=== PATIENT | female | born 1985 | race African-American/Black ===

== ENCOUNTER 2020-12-18 10:52 | Emergency (ER) | payer BC, MEDICAID, SELFPAY ==
[2020-12-18 11:11] VITALS: BP 135/88; PULSE 93; RESP 20; TEMP 36.3; O2SAT 97
--- NOTE | 2020-12-18 12:08 | ED.GENADULT ---
HPI - General Adult General Chief complaint: Skin/Abscess/Foreign Body Stated complaint: Rash on Arm Time Seen by Provider: 12/18/20 12:08 Source: patient and RN notes reviewed Mode of arrival: ambulatory Limitations: no limitations History of Present Illness HPI narrative: 35-year-old -Central African female presents with complaints of raised, itching, generalized rash to upper arms for the past 1 to 2 weeks. Oral reports increasing symptoms over the past 24 hours with itching. Benadryl 25mg and Hydrocortisone cream without relief. History of Asthma. Denies new changes in personal hygiene products or laundry detergent. No new foods or medications. No swelling, burning, bleeding, or drainage. Denies fever, chills, facial swelling, or tongue swelling. Denies chest pain or dyspnea. Tolerating po intake well. LMP 12/13/2020. Remains active. The patient reports she have not been diagnosed with COVID-19. The patient reports she is not waiting for the results of a COVID-19 lab test. The patient reports she do not have weakness or fatigue. The patient reports she do not have a new or worsening cough. The patient reports she do not have any rhinorrhea, congestion, sore throat, loss of taste or smell, nausea, vomiting, abdominal pain, and diarrhea. Denies recent traveling. Denies concerns for COVID-19 or exposures. At this time, patient is not suspected of having COVID-19. Some parts of this dictation were generated by voice recognition software and may contain typographical and/or grammatical inaccuracies. Related Data Home Medications Medication Instructions Recorded Confirmed betamethasone valerate 0.1 applic TOPICAL DIRECTED 12/18/20 12/18/20 hydrochlorothiazide 25 mg PO DAILY 12/18/20 12/18/20 hydrocortisone 1 applic TOPICAL DIRECTED 12/18/20 12/18/20 losartan 100 mg PO DAILY 12/18/20 12/18/20 Allergies Allergy/AdvReac Type Severity Reaction Status Date / Time No Known Allergies Allergy Verified 12/18/20 11:16 Review of Systems Review of Systems: Narrative: CONSTITUTIONAL: Denies fever, chills, sweats. EYES: Denies visual changes, redness, discharge. ENT: Denies rhinorrhea, congestion, sore throat, otalgia. CARDIOVASCULAR: Denies chest pain, palpitations, edema. RESPIRATORY: Denies dyspnea, wheezing, cough. GASTROINTESTINAL: Denies abdominal pain, nausea, vomiting, diarrhea. GENITOURINARY: Denies dysuria, hematuria, abnormal discharge SKIN: Complains of raised, itching, generalized rash to upper arms. Denies drainage. MUSCULOSKELETAL: Denies acute back pain, joint pain, or myalgia. NEUROLOGIC: Denies numbness or focal weakness. PSYCHIATRIC: Denies anxiety or depression. All other systems reviewed & are unremarkable except as noted in HPI and below. [facility] Past Medical History Medical History (Updated 12/19/20 @ 00:01 by Marni Trotter) Asthma Hypertension Obese Ovarian cyst Right Surgical History Surgical History (Updated 12/18/20 @ 12:20 by SUHAS Bishop) History of cholecystectomy History of dilation and curettage History of oophorectomy, unilateral Right Family History Family History (Updated 12/18/20 @ 12:21 by SUHAS Bishop) Father Unknown family medical history Mother Alive and well Social History Social History (Updated 12/18/20 @ 12:21 by SUHAS Bishop) Smoking status: Never smoker Tobacco type: cigarettes Second hand tobacco smoke exposure: No Alcohol intake: current Substance use: never Substance use type: does not use Living arrangements: with family Occupation/Education: occupation Gender identity (if verbalized by the patient): Female Comments At time of signature, agree with nurse past medical, surgical, social, and family history. There is relevant patient's history pertinent to the presenting complaint, no relevant family history pertinent to the presenting complaint. Exam Narrative: Exam Narrative: GENER
== END 2020-12-18 12:27 | disposition home or self-care (01) ==
PROVIDERS: Emergency Provider Nurse Practitioner Family
DX: L30.9 Dermatitis, unspecified (principal); J45.909 Unspecified asthma, uncomplicated; I10 Essential (primary) hypertension
CPT/HCPCS: 99203; G0463

== ENCOUNTER 2024-07-09 11:53 | Outpatient (CLI) | payer BC, SELFPAY ==
[2024-07-09 12:08] LABS: Basophils Percent Auto 0.2 % (0.2-1.2); Eosinophils Absolute Auto 0.1 K/mm3 (0-0.3); Eosinophils Percent Auto 1.5 % (0-4.4); Hematocrit 36.9 % (37.0-47.0); Hemoglobin 12.1 g/dL (12.0-15.0); Immature Granulocyte Absolute 0.03 K/mm3 (0.00-0.031); Immature Granulocyte Percent A 0.4 % (0-0.5); Lymphocytes Percent Auto 20.8 % (18.3-44.2); Mean Corpuscular HGB Conc 32.8 g/dl (32-36); Mean Corpuscular Hemoglobin 27.6 pg (26-34); Mean Corpuscular Volume 84.1 fl (80-100); Mean Platelet Volume 8.8 fl (7.4-10.4); Monocytes Absolute Auto 0.4 K/mm3 (0.1-0.6); Monocytes Percent Auto 4.5 % (2.6-8.5); Neutrophils Absolute Auto 5.9 K/mm3 (1.3-6.7); Neutrophils Percent Auto 72.6 % (45.5-73.1); Platelet Count Result 339 k/mm3 (150-375); Red Blood Count 4.39 M/mm3 (4.2-5.4); Red Cell Distribution Width 11.9 % (11.5-14.5); White Blood Count 8.2 K/mm3 (4.5-10.0)
[2024-07-09 12:18] LABS: Alanine Aminotransferase 23 U/L (6-35); Alkaline Phosphatase 87 U/L (38-126); Anion Gap 4 mmol/L (4-12); Aspartate Amino Transferase 23 U/L (14-36); Bilirubin,Total 0.5 mg/dL (0.2-1.3); Blood Urea Nitrogen 13 mg/dL (7-17); Calcium 9.4 mg/dL (8.4-10.2); Carbon Dioxide 29 mmol/L (22-30); Chloride 104 mmol/L (98-107); Cholesterol 241 mg/dL (0-200); Estimated Glomerular Filt Rate > 60; Glucose 90 mg/dL (65-110); HDL Direct 42 mg/dL; Potassium 4.3 mmol/L (3.4-5.0); Sodium 137 mmol/L (137-145); Triglycerides 113 mg/dL (<150)
[2024-07-09 12:21] LABS: Alanine Aminotransferase 23 U/L (6-35); Alkaline Phosphatase 88 U/L (38-126); Aspartate Amino Transferase 23 U/L (14-36); Bilirubin,Total 0.6 mg/dL (0.2-1.3); Lipase 26 U/L (23-300)
[2024-07-09 12:29] LABS: LDL Cholesterol Direct 130 mg/dL
[2024-07-09 13:05] LABS: Vitamin D 25 Hydroxy 25.7 ng/mL
== END 2024-07-09 11:54 | disposition home or self-care (01) ==
PROVIDERS: PCP Emergency Medicine; Referring Provider Emergency Medicine; Visit Provider Nurse Practitioner Family
DX: R79.89 Other specified abnormal findings of blood chemistry (principal); E78.5 Hyperlipidemia, unspecified; E03.9 Hypothyroidism, unspecified; E55.9 Vitamin D deficiency, unspecified
CPT/HCPCS: 36415; 80053; 80061; 80076; 82306; 83690; 84443; 85025

== ENCOUNTER 2024-09-20 10:23 | Outpatient (CLI) | payer BC, SELFPAY ==
--- NOTE | ~2024-09-20 | XR_ITS ---
EXAMINATION: XR wrist LT 2V DATE: 09/20/2024 10:42 INDICATION: Left wrist pain. TECHNIQUE: 2 views of left wrist were obtained. COMPARISON: None. FINDINGS: Alignment is normal. No fracture. Joint spaces are normal. IMPRESSION: 1. Normal left wrist. Reviewed, dictated and finalized at location A. ICAL TRIALS DATA COORDINATOR IMPRESSION: 1. Normal left wrist.
--- OUTSIDE RECORDS SUMMARY | 2024-09-20 10:27 | XMS_ITS | Clinical Summary ---
Author Organization [facility] Address [address] [place] [address] Care Team Providers Care Strategic Planning Manager Name Role Phone Joanna Yang MD Primary Care Provider [phone] Source Comments [facility],non-owned Affiliates and Associated Physician Practices is amultiple site organization consisting of ambulatory clinics and hospital sitesin [place], [place], [place] and [place]. This disclosure is being madepursuant to the Care Everywhere program and may not contain all information available regarding this patient. Last updated 18.[facility] Allergies Active Allergy Reactions Criticality Noted Date Comments Losartan Itching Medium 12/07/2020 Medications * Be aware that medications may not be up to date on this document. Alwaysverify current medications with the patient. Medication Sig Dispensed Refills Start Date End Date Status hydroCHLOROthiazide (HYDRODIURIL) 25 MG tablet Take 25 mg by mouth once daily 11/25/2020 Active desoximetasone (TOPICORT) 0.25 % ointment Apply to rash up to twice daily. 30 days supply. 60 g 1 12/14/2020 Active betamethasone dipropionate (DIPROSONE) 0.05 % ointment Apply to rash up to twice daily. 30 days supply. 50 g 1 12/27/2020 Active loratadine (CLARITIN) 10 MG tablet TAKE 1 TABLET BY MOUTH ONCE DAILY FOR 60 DAYS FOR RHINOSINUSITIS 12/18/2020 Active predniSONE (DELTASONE) 20 MG tablet 12/18/2020 Active Active Problems Problem Noted Date Diagnosed Date Rash and nonspecific skin eruption 12/14/2020 Assessment & Plan (12/28/2020 11:02 PM CDT): - Stable - Monomorphic hyperpigmented flat topped papules coalescing into pebbled, flat topped plaques on forehead, V of chest, dorsal forearms with biopsy showing scattered intraepidermal apoptotic keratinocytes w/ superficial to mid PV lymphocytic infiltrate - Based on bx findings most favor a phototoxic dermatitis vs. other drug eruption vs. less likely connective tissue disease - Finish out prednisone course prescribed by outside provider - Start betamethasone dip oint BID AA 2 weeks, then decrease to EOD application - Strict SPF 50+, broad spectrum, containing Zn oxide vs. titanium dioxide; sun avoidance - F/u 8 wks to evaluate for resolution Assessment & Plan (12/14/2020 9:41 AM CDT): - Numerous monomorphic flat topped hyperpigmented papules in somewhat of a photo distribution on face, chest, forearms - PMLE vs photoallergic reaction less likely lichenoid drug - Start desoximetasone ointment on flaring areas on body up to BID for up to 2 weeks, taper with improvement - Punch Biopsy (see procedure note) - Post-biopsy handout given - Wound care instructions reviewed - RTC in 10-14 days for suture removal and to review results - Will call patient with biopsy results. If intervention is indicated, will make arrangements at that time Family History Medical History Relation Name Comments None Known Brother None Known Father None Known Maternal Aunt None Known Maternal Grandfather None Known Maternal Grandmother None Known Maternal Uncle None Known Mother None Known Other None Known Paternal Aunt None Known Paternal Grandfather None Known Paternal Grandmother None Known Paternal Uncle None Known Sister Asthma Neg Hx CVA Neg Hx Cancer - Breast Neg Hx Cancer - Other Neg Hx Cancer - Skin, Melanoma Neg Hx Cancer - Skin, Non Melanoma Neg Hx Eczema Neg Hx Hemophilia Neg Hx Psoriasis Neg Hx Relation Name Status Comments Brother Father Maternal Aunt Maternal Grandfather Maternal Grandmother Maternal Uncle Mother Other Paternal Aunt Paternal Grandfather Paternal Grandmother Paternal Uncle Sister Social History Tobacco Use Types Packs/Day Years Used Date Smoking Tobacco: Never Smokeless Tobacco: Never Sex and Gender Information Value Date Recorded Sex Assigned at Not on file Gender Identity Not on file Sexual Orientation Not on file Plan of Treatment Health Maintenance Due Date Last Done Comments LIPID TESTING 1983 MAMMOGRAM 1983 PAP SMEAR 1983 HIV SCREENING 1998 HEPATITIS C SCREENING 01/06/2001 DTAP/TDAP/TD VACCINES (1 - Tdap) 2002 HEPATITIS B VACCINE (1 of 3 - 19+ 3-dose series) 2002 COVID-19 VACCINE (1 - 2023-2 5 season) 2024 INFLUENZA VACCINE (#1) 2024 DEPRESSION SCREENING 07/29/2024 ZOSTER VACCINE (1 of 2) 2033 HIB VACCINE Aged Out No longer eligi ble based on patient's age to complete this topic HPV VACCINE Aged Out No longer eligi ble based on patient's age to complete this topic MENINGOCOCCAL (Group B) VACCINE Aged Out No longer eligible based on patient's age to complete this topic MENINGOCOCCAL VACCINE Aged Out No sudeep shena eligible based on patient's age to complete this topic PNEUMOCOCCAL VACCINE Aged Out No long er eligible based on patient's age to complete this topic Care Teams Strategic Planning Manager Relationship Specialty Start Date End Date Joanna Yang MD [address] [place] [address] PCP - General 05/08/18
--- OUTSIDE RECORDS SUMMARY | 2024-09-20 10:27 | XMS_ITS | Referral Summary ---
Author Organization [facility] Address [address] [place] [address] Care Team Providers Care Color Grinder Name Role Phone Joanna Yang MD Primary Care Provider [phone] [facility],non-owned Affiliates and Associated Physician Practices is amultiple site organization consisting of ambulatory clinics and hospital sitesin [place], [place], [place] and [place]. This disclosure is being madepursuant to the Care Everywhere program and may not contain all information available regarding this patient. Last updated 18.[facility] Allergies Active Allergy Reactions Criticality Noted Date [...] indicated, will make arrangements at that time Social History Tobacco Use Types Packs/Day Years Used Date Smoking Tobacco: Never Smokeless Tobacco: Never Sex and Gender Information Value Date Recorded Sex Assigned at Not on file Gender Identity Not on file Sexual Orientation Not on file Plan of Treatment Not on file Care Teams Color Grinder Relationship Specialty Start Date End Date Joanna Yang MD [address] [place] [address] PCP - General 05/08/18
--- OUTSIDE RECORDS SUMMARY | 2024-09-20 10:28 | XMS_ITS | Referral Summary ---
Author Organization [facility] Address [address] [place] [address] Care Team Providers Care Macerator Operator Name Role Phone Roc Hester MD Primary Care Provide r Encounters Date Type Department Care Team Description 06/22/2024 11:45 AM EDUCATION MANAGER Office Visit [facility] Family Medicine at [address] [place] [address] Aniceto Chavez MD Class 3 severe obesity due to excess calories without serious comorbidity with body mass index (BMI) of 45.0 to 49.9 in adult (HCC) (Primary Dx) from Last 3 Months Allergies Active Allergy Reactions Criticality Noted Date Comments Losartan Itching Medium 12/07/2020 Medications hydrocortisone 1 % ointment APPLY TOPICALLY TO AFFECTED AREAS ON FACE TWICE DAILY NEEDED 1 Active progesterone (PROMETRIUM) 200 mg capsule Take 200 mg by mouth daily Active ibuprofen (ADVIL,MOTRIN) 800 mg tablet Take 1 tablet (800 mg total) by mouth daily as needed for pain 3 Active lisinopril-hydro CHLOROthiazide (ZESTORETIC) 20-12.5 mg per tablet Take 1 tablet by mouth daily 4 Active phentermine (ADIPEX-P) 37.5 mg tabletIndication s:Class 3 severe obesity due to excess calories without serious comorbidity with body mass index (BMI) of 45.0 to 49.9 in adult (HCC) Take 1 tablet (37.5 mg total) by mouth daily before breakfast 90 tablet 1 4 12/20/19 Active semaglutide (Wegovy) 0.25 mg/0.5 mL auto-injectorInd ications:Weight Loss Management for Obese Patient (BMI >= 30) Inject 0.5 mL (0.25 mg total) under the skin every 7 days for 28 days 2 mL Active Active Problems Problem Noted Date Diagnosed Date Abdominal discomfort 10/24/2023 Abdominal hernia 10/24/2023 Acne vulgaris 10/24/2023 Acute abscess of face 10/24/2023 Acute pharyngitis 10/24/2023 Contact dermatitis 10/24/2023 Essential hypertension 10/24/2023 Hypertensive disorder 10/24/2023 Hypertensive renal disease 10/24/2023 Leukocytosis 10/24/2023 Migraine 10/24/2023 Morbid obesity 10/24/2023 Abnormal weight gain 04/08/2023 Class 3 severe obesity due t o excess calories without serious comorbidity with body mass index (BMI) of 45.0 to 49.9 in adult 04/08/2023 Rash and nonspecific skin eruption 12/14/2020 Overview (10/24/2023): Last Assessment & Plan: - Stable - Monomorphic hyperpigmented flat topped [...] F/u 8 wks to evaluate for resolution Hypertensive disorder 06/11/2019 Overview (06/22/2024): Hypertension;Recorded Elsewhere: No Location: [facility] Source: EHR Chronic: N Practice ID: [id number] Billable Time: 01:00:00 PM Contraceptive management 02/20/2019 Overview (06/22/2024): Encounter for routine checking of intrauterine contracep dev;Practice ID: [id number] Syphilis contact 04/08/2018 Overview (06/22/2024): Encntr screen for infections w sexl mode of transmiss;Recorded Elsewhere: No Location: [facility] Source: EHR Chronic: N Practice ID: [id number] Billable Time: 10:30:00 AM Obesity with body mass index 30 or greater 04/08 Overview (06/22/2024): Body mass index (BMI) 50-59.9 , adult;Recorded Elsewhere: No Location: [facility] Source: EHR Chronic: N Practice ID: [id number] Billable Time: 10:30:00 AM Immunizations Immunization Administration Dates Next Due Influenza, Split 07/29/2017 Influenza, Unspecified 06/22/2024(Deferr ed: Patient decision),10/24/2023(Deferred: Patient decision),04/24/2023(Deferred: Patient decision) Social History Tobacco Use Types Packs/Day Years Used Date Smoking Tobacco: Never Smokeless Tobacco: Never Tobacco Cessation:Counseling Given: Not Answered AUDIT-C Answer Date Recorded Q1: How often do you have a drink containing alc ohol? Monthly or less 06/22/2024 Q2: How many drinks containi ng alcohol do you have on a typical day when you are drinking? 1 or 2 06/22/2024 Q3: How often do you have si x or more drinks on one occasion? Less than monthly 06/22/2024 PHQ-2 Answer Date Recorded PHQ-2 Total Score (If total score is 3 or more points, staff should administer the PHQ-9) 0 06/22/2024 Comments Unknown Sex and Gender Information Value Date Recorded Sex Assigned at Not on file Legal Sex Female 8:31 AM CDT Gender Identity Not on file Sexual Orientation Not on file Last Filed Vital Signs Vital Sign Reading Time Taken Comments Blood Pressure 149/103 06/22/2024 11:41 AM EDUCATION MANAGER Pulse 90 06/22/2024 11:41 AM EDUCATION MANAGER Temperature 36.3 C (97.3 F) 06/22/2024 11:41 AM EDUCATION MANAGER Respiratory Rate 18 06/22/2024 11:4 1 AM EDUCATION MANAGER Oxygen Saturation 96% 10/24/2023 10: 41 AM CDT Inhaled Oxygen Concentration - - Weight 132.4 kg (291 lb 12.8 oz) 2023 11:41 AM EDUCATION MANAGER Height 170.2 cm (5' 7 ) 06/22/2024 11:4 1 AM EDUCATION MANAGER Body Mass Index 45.7 06/22/2024 11:41 AM EDUCATION MANAGER Plan of Treatment Not on file Insurance [facility] ACCESS CHOICE [facility] CHOICE OOS IDPA [facility]ESS [facility]ICE [facility] Address: [address] [place] [address] Care Teams Macerator Operator Relationship Specialty Start Date End Date Roc Hester MD [address] [place] [address] PCP - General Emergency Medicine 06/22/24
--- OUTSIDE RECORDS SUMMARY | 2024-09-20 10:28 | XMS_ITS | Clinical Summary ---
Author Organization [facility] Address [address] [place] [address] Care Team Providers Care Geriatric Nurse Practitioner Name Role Phone Roc Hester MD Primary Care Provide r Allergies Active Allergy Reactions Criticality Noted Date [...] before breakfast 90 tablet 1 4 12/20/19 25 Active semaglutide (Wegovy) 0.25 mg/0.5 mL auto-injectorInd ications:Weight Loss Management for Obese Patient (BMI >= 30) Inject 0.5 mL (0.25 mg total) under the skin every 7 days for 28 days 2 mL 4 Active Active Problems Problem Noted Date Diagnosed [...] 06/11/2019 Overview (06/22/2024): Hypertension;Recorded Elsewhere: No Location: [facility] Source: EHR Chronic: N Practice ID: [id number] Billable Time: 01:00:00 PM Contraceptive management 02/20/2019 Overview (06/22/2024): Encounter for routine checking of intrauterine contracep dev;Practice ID: [id number] Syphilis contact 04/08/2018 Overview (06/22/2024): Encntr screen for infections w sexl mode of transmiss;Recorded Elsewhere: No Location: [facility] Source: EHR Chronic: N Practice ID: [id number] Billable Time: 10:30:00 AM Obesity with body mass index 30 or greater 04/08 Overview (06/22/2024): Body mass index (BMI) 50-59.9 , adult;Recorded Elsewhere: No Location: [facility] Source: EHR Chronic: N Practice ID: [id number] Billable Time: 10:30:00 AM Encounters Date Type Department Care Team Description 06/22/2024 11:45 AM MAINTENANCE WORKER MUNICIPAL Office Visit [facility] Family Medicine at [address] [place] [address] Aniceto Chavez MD Class 3 severe obesity due to excess calories without serious comorbidity with body mass index (BMI) of 45.0 to 49.9 in adult (HCC) (Primary Dx) from Last 3 Months Immunizations Immunization Administration Dates Next Due Influenza, Split 07/29/2017 Influenza, Unspecified 06/22/2024(Deferr ed: Patient decision),10/24/2023(Deferred: Patient decision),04/24/2023(Deferred: Patient decision) Surgical History Surgery Date Site/Laterality Comments CHOLECYSTECTOMY SECTION Medical History Medical History Date Comments Hypertension Family History Medical History Relation Name Comments No Known Problems Daughter Kidney disease Father No Known Problems Mother Relation Name Status Comments Brother 1 Alive Brother 2 Alive Daughter Alive Father Mother Alive Sister 1 Alive Sister 2 Alive Social History Tobacco Use Types Packs/Day Years [...] on file Sexual Orientation Not on file Obstetrics History Last Filed Vital Signs Vital Sign Reading Time Taken Comments Blood Pressure 149/103 06/22/2024 11:41 AM MAINTENANCE WORKER MUNICIPAL Pulse 90 06/22/2024 11:41 AM MAINTENANCE WORKER MUNICIPAL Temperature 36.3 C (97.3 F) 06/22/2024 11:41 AM MAINTENANCE WORKER MUNICIPAL Respiratory Rate 18 06/22/2024 11:4 1 AM MAINTENANCE WORKER MUNICIPAL Oxygen Saturation 96% 10/24/2023 10: 41 AM CDT Inhaled Oxygen Concentration - - Weight 132.4 kg (291 lb 12.8 oz) 2023 11:41 AM MAINTENANCE WORKER MUNICIPAL Height 170.2 cm (5' 7 ) 06/22/2024 11:4 1 AM MAINTENANCE WORKER MUNICIPAL Body Mass Index 45.7 06/22/2024 11:41 AM MAINTENANCE WORKER MUNICIPAL Plan of Treatment Health Maintenance Due Date Last Done Comments Breast Cancer Screening-Mammogram 1983 Cervical Cancer Screening 1983 Hepatitis C Screening 1983 DTaP/Tdap/Td Vaccine (1 - Tdap) 1994 Varicella Vaccines (1 of 2 - 13+ 2-dose series) 01/12/1996 Hepatitis B Screening 2001 Regular Well Visit/Exam 18-64 2001 Influenza Vaccine (#1) 2025 07/29/2017 Postp oned from 03/29/2024 (Patient declined, but will receive in the future) Depression Screening 06/22/2025 06/22/2024, 03/15/2021 HPV Vaccines Aged Out No longer eligi ble based on patient's age to complete this topic Pneumococcal vaccine <65 Aged Out No longer eligible based on patient's age to complete this topic Insurance [facility] eTect CHOICE BLUE ACC CHOICE OOS IDPA [employer] ACCESS CHOICE Care Teams Geriatric Nurse Practitioner Relationship Specialty Start Date End Date Roc Hester MD [address] [place] [address] PCP - General Emergency Medicine 06/22/24
--- OUTSIDE RECORDS SUMMARY | 2024-09-20 10:28 | XMS_ITS | Patient Health Summary ---
Author Organization [facility] [employer] Address [address] [place] [address] Care Team Providers Care Filament Coil Winder Name Role Phone Joanna Yang MD Primary Care Provider [phone] Note from [facility][note 3],non-owned Affiliates and Associated Physician Practices is amultiple site organization consisting of ambulatory clinics and hospital sitesin [place], [place], [place] and [place]. This disclosure is being madepursuant to the Care Everywhere program and may not contain all information available regarding this patient. Last updated 18.[facility] Allergies * Losartan(Itching) -Medium Criticality Medications * Be aware that medications may not be up to date on this document. Alwaysverify current medications with the patient. * hydroCHLOROthiazide (HYDRODIURIL) 25 MG tablet(Started 11/25/2020) Take 25 mg by mouth once daily * desoximetasone (TOPICORT) 0.25 % ointment(Started 12/14/2020) Apply to rash up to twice daily. 30 days supply. 1 refill by 12/14/2021 * betamethasone dipropionate (DIPROSONE) 0.05 % ointment(Started 12/27/2020) Apply to rash up to twice daily. 30 days supply. 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 * predniSONE (DELTASONE) 20 MG tablet(Started 12/18/2020) Active Problems Problem Noted Date Diagnosed Date Rash and nonspecific skin eruption 12/14/2020 Social History Tobacco Use Types Packs/Day Years Used Date Smoking Tobacco: Never Smokeless Tobacco: Never Sex and Gender Information Value Date Recorded Sex Assigned at Not on file Gender Identity Not on file Sexual Orientation Not on file Procedures * MI PUNCH BX SKIN SINGLE LESION(Performed 12/14/2020) Performed for Rash and nonspecific skin eruption * DERMATOPATHOLOGY(Performed 12/14/2020) Performed for Rash and nonspecific skin eruption * GROSS + MICRO EXAM(Performed 11/12/2001) Results * MI PUNCH BX SKIN SINGLE LESION (12/14/2020 9:38 AM CDT) Narrative Sheryl Shepherd MD - 12/14/2020 9:38 AM CDT Jenni Martinez MD 12/14/2020 9:38 AM Risks, benefits and alternatives to punch biopsy were discussed with the patient. Verbal consent was obtained. Location: R upper arm Punch biopsy: 4 mm Skin prep: Alcohol Anesthesia: 1% lidocaine with epinephrine Closure: 4-0 nylon suture Dressing and wound care discussed, instruction provided. The procedure was well tolerated without complications. Patient agrees to phone call for results and message if not available. Jenni Martinez MD Dermatology PGY-3 Sheryl Shepherd MD PROCEDURE/MINOR SURG ICAL ORDERABLES * DERMATOPATHOLOGY (12/14/2020 12:00 AM CDT) Case Report Dermatopathology Report Case: [id number] Authorizing Provider: Sheryl Shepherd MD Collected: 12/14/2020 12:00 AM Ordering Location: [facility] Received: 12/14/2020 11:21 AM Dermatology Pathologist: Shanna Conroy MD Specimen: Skin, right upper arm 4:39 PM CDT DERMATOPATHOLOGY LABORATORY Final Diagnosis Specimen A. SKIN, right upper arm: SCATTERED INTRAEPIDERMAL APOPTOTIC KERATINOCYTES WITH SUPERFICIAL TO MID PERIVASCULAR LYMPHOCYTIC INFILTRATE (L98.9) (see microscopic description and comment) 4:39 PM CDT DERMATOPATHOLOGY LABORATORY Clinical History PMLE vs photoallergic reaction less likely lichenoid drug eruption R/O CTD. 1 4:39 PM CDT DERMATOPATHOLOGY LABORATORY Gross Description Specimen A: Received is one formalin filled container labeled with the patient's name and designated right upper arm. The specimen consists of a punch biopsy measuring [id number], bisected. Jar 0. 4:39 PM CDT DERMATOPATHOLOGY LABORATORY Microscopic Description Specimen A. SKIN, right upper arm: Focal parakeratosis is present. Scattered intraepidermal apoptotic keratinocytes are seen. In the dermis, there is a superficial and mid perivascular, mainly lymphohistiocytic inflammatory infiltrate. Eosinophils are not present. Significant periadnexal involvement and superficial dermal edema are not appreciated. Periodic acid-Jessy (PAS) stain fails to highlight fungal elements or significant basement membrane thickening in the available sections. Colloidal iron stain reveals mild dermal mucin deposition. COMMENT: Scattered intraepidermal apoptotic keratinocytes are present, which somewhat favors a phototoxic dermatitis. The histological differential diagnosis of superficial and mid perivascular lymphoid infiltrate is extensive and includes an infectious related exanthem, a drug eruption, gyrate erythemas, and less likely lymphoma/leukemia cutis. Connective tissue disorder is less favored due to lack of deeper infiltrate, as well as lack of more significant periadnexal involvement and lack of more significant basement membrane thickening. Clinical correlation is recommended. 4:39 PM CDT DERMATOPATHOLOGY LABORATORY Disclaimer An external and internal positive and negative controls are appropriate for the histochemical, immunohistochemical and immunofluorescence stain(s) in this case (if any), except where stated explicitly. The performance characteristics of the stain(s) cited in this report were developed and its performance characteristic determined by the Dermatopathology Laboratory at [facility], directed by Dr. Randall Lechuga. These tests need not be, and therefore are not, approved by the [place] Food and Drug Administration. The tests are used for clinical purposes. Billing Codes Specimen Charges Stain Charges 35380 1 [id number] 1 1 1 4:39 PM CDT DERMATOPATHOLOGY LABORATORY Embedded Images 4:39 PM CDT DERMATOPATHOLOGY LABORATORY Pathology/Cytolog y TISSUE SPECIMEN FROM SKIN / Unknown 12/14/2020 12/14/2020 11:21 AM CDT Sheryl Shepherd MD LAB - PATHOLOGY/CYTO LOGY ORDERABLES DERMATOPATHOLOGY LABORATORY [facility] - Department of Dermatology [address], [address] [phone] * GROSS + MICRO EXAM (11/12/2001 9:38 AM CDT) Result CASE NUMBER [id number] Comment: ORDERING PHYSICIAN GENEVA KWON SPECIMEN TYPE Placenta Date 11/12/2001 Physician Dorina Gross Description Received fresh from the OR labeled `placenta' and consists of a single rounded placenta with a centrally placed umbilical cord measuring 13 x 11.5 x 2 cm. and weighing 220 gms., a 7 x 1.5 cm umbilical cord is attached centrally to the placental disc. It has three blood vessels and gelatinous material. The membranes are smooth, martinez white and glistening. The surface is martinez pink with normal vascular arcade. The maternal surface has normal cotyledon architecture and is martinez maroon. A 1.0 x 0.5 cm firm white area is identified on the maternal surface. Sections are submitted as follows A-umbilical cord and membranes, B- surface, C-maternal surface [employer]/ [facility] Microscopic Exam Microscopic examination of the umbilical cord reveals 3 vascular channels with no evidence of funisitis or thrombosis. The chorioamniotic membranes show no evidence of inflammation, necrosis or meconium. The chorionic villi are mature in appearance, small to medium in size, well-vascularized with syncytial knots identified. There is no evidence of villitis. There is an infarct present along the stratum basalis with ghost outlines of chorionic villi. Diagnosis I. Placenta A. Mature placenta, 220 grams. B. Focal infarction. C. Three vessel umbilical cord with no pathologic changes. D. 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 Gas Cutting Machine Operator bk Pathologist Geraldine Summers M.D. [place]. 11/13/2001 1352 <1> CPT code 63769 MISCELLANEOUS SAMPLES / Unknown 11/12/2001 9:38 AM CDT 11/12/2001 9:38 AM CDT Historical Provider LAB - PATHOLOGY/C YTOLOGY ORDERABLES Care Teams Filament Coil Winder Relationship Specialty Start Date End Date Joanna Yang MD [address] [place] [address] PCP - General 05/08/18
--- OUTSIDE RECORDS SUMMARY | 2024-09-20 10:28 | XMS_ITS | Continuity of Care Document ---
Author Organization [facility]ly [facility] Address [address] [facility] [address] [place] [address] Phone Care Team Providers Care Cycle Specialist Name Role Phone Marce Menendez Unavailable Unavailable Advance Directives Directive Yes / No Effective Date File Name No Information Encounters Encounter Description Practice Location Reason(s) For Visit Diagnoses Date Provider Providers Copied on Encounter [facility], [address], [place], [place], [id number], [place] tel:[phone] [facility] No Information 4-200 1 Gemma Zheng. [address] , [address], [place], [address], [place]. tel:[phone] Family History Family Member Type Diagnosis Age At Onset No Information Payers Payer name Insurance type Covered alliance party ID Authoriza tion(s) No Information Social History Type Description Quantity Date Captured Comments Sex Female Smoking Status No Information Chief Complaint And Reason For Visit No Information Reason For Referral Reason For Referral No Information History Of Present Illness Encounter Date Complaint History Of Prese nt Illness No Information Functional Status Date Functional Assessmen t No Information Instructions Date Instruction Additional Infor mation No Information Assessments Type Assessment Date No Information Patient Care Teams Name Effective Dates (start - stop) Status Members No Information
--- OUTSIDE RECORDS SUMMARY | 2024-09-20 10:28 | XMS_ITS | Data Portability ---
Author Organization CANDACE LIZMariola Sullivan Address [address] [place] [address] Assessment No assessment recorded. Plan of Treatment Reminders Order Date Submit Date Provider Last Modified By Organization Details Last Modified Time Details Appointments None recorded. Lab CMP, serum or plasma 2022 023 [facility], [address] [place] [address], [facility] [address], [place], [address], 3 06:16:32 HbA1c (hemoglob in A1c), blood 2022 023 [facility], [address] [place] [address], [address], [place], [address], 3 07:16:03 TSH + free T4, serum 2022 023 [facility], [address] [place] [address], [facility] [address], [place], [address], 3 07:16:02 Referral physical therapist referral - Please call patient for appointme nt, thanks! 2022 023 [facility] Physical, Occupational & Speech Medicine & Rehab, [address] [place], [address], 4 11:08:23 plastic and reconstru ctive surgeon referral - Please call patient for appointme nt, thanks! 2022 023 carlton Wills MD, [address] [place], [address], 4 11:08:22 plastic and reconstru ctive surgeon referral - Please call patient for appointme nt, thanks! 2022 023 [email or web address] [facility] Plastic [facility] Reconstructive Surgery, [address], [address], [place], [address], 3 15:50:54 plastic surgeon referral - Please call patient for appointme nt, thanks! 2021 022 [facility] Maribell Reis MD, [address] [place], [address], 2 12:40:44 Procedures None recorded. Surgeries None recorded. Imaging None recorded. Medication Orders clindamyc in 1 % topical gel 2022 023 [facility] #[id number], [address], [place], [address], 3 14:09:49 amoxicill in 875 mg-potass ium clavulana te 125 mg tablet 2022 023 [facility] #[id number], [address], [place], [address], 3 14:09:49 albuterol sulfate 2.5 mg/3 mL (0.083 %) solution for nebulizat ion 2022 023 [facility] #[id number], [address], [place], [address], 3 12:03:54 albuterol sulfate HFA 90 mcg/actua tion aerosol inhaler 2022 023 [facility] #[id number], [address], [place], [address], 3 12:03:55 triamcino lone acetonide 0.1 % topical ointment 2022 023 [id number], [address], [place], [address], 3 12:03:56 ibuprofen 800 mg tablet 2022 023 [id number], [address], [place], [address], 3 12:03:54 losartan 50 mg tablet 2022 023 [id number], [address] [place], [address], 3 12:03:56 triamcino lone acetonide 0.1 % topical ointment 2022 023 [id number], [address], [place], [address], 3 13:14:54 ibuprofen 800 mg tablet 2022 023 [id number], [address] [place], [address], 3 13:14:53 losartan 50 mg tablet 2022 023 [id number], [address], [place], [address], 3 13:14:53 acyclovir 800 mg tablet 2021 022 [id number], [address] [place], [address], 2 13:07:47 Patient TargetsNo targets recorded. Patient Instructions Encounter Date Encounter Id Patient Instructions Last Modified By Organization Details Last Modified Time 08/07/2022 [id number] A healthy lifestyle: care instructions jhsieh Not available 08/07/2022 12:55:15 10/22/2022 [id number] learning about high blood pressure [facility] Not available 10/22/2022 13:14:51 01/24/2023 [id number] acne: care instructions [facility] Not available 01/24/2023 11:20:17 When You Want to Lose Weight: Care Instructions [facility] Not available 01/24/2023 11:20:17 A healthy lifestyle: care instructions [facility] Not available 01/24/2023 11:20:18 learning about high blood pressure [facility] Not available 01/24/2023 11:20:17 05/08/2023 [id number] acne: care instructions [facility] Not available 05/08/2023 14:09:45 A healthy lifestyle: care instructions [facility] Not available 05/08/2023 14:09:45 Reason for Referral Plastic Surgeon Referral for Gynecomastia Please call patient for appointment, thanks! Referring Physician: Joanna Yang, Internal Medicine, Encounter Date: 03/02/2022 [facility] Referral for Macromastia Please call patient for appointment, thanks! Referring Physician: Joanna Yang Internal Medicine, Encounter Date: 08/07/2022 [facility] Referral for Macromastia Please call patient for appointment, thanks! Referring Physician: Joanna Yang Internal Medicine, Encounter Date: 01/24/2023 Physical Therapist Referral for Chronic low back pain Please call patient for appointment, thanks! Referring Physician: Joanna Yang Internal Medicine, Encounter Date: 05/08/2023 Results Created Date Observation Date Name Description Value Unit Range Abnormal Flag Note LastModifiedBy Organization Detail LastModifiedTime 01/18/20 23 01/17/2023 COMP. METAB OLIC PANEL (14) glucose 92 mg/dL 65-99 ANION GP 16.0 mmol/ L N OSMOL 273.0 mOsM/ L L REFER ENCE RANGE : 275.0 -301. 0 Not Available [facility] Him Department [address], [place], [address], 01/18/2023 06:16:32 01/18/20 23 01/17/2023 COMP. METAB OLIC PANEL (14) BUN 11 mg/dL 8-26 Not Available [facility] Department [address] [place], [address], 01/18/2023 06:16:32 01/18/20 23 01/17/2023 COMP. METAB OLIC PANEL (14) creatinine 0.81 mg/dL 0.50-1 .40 Not Available [facility] Department [address] [place], [address], 01/18/2023 06:16:32 01/18/20 23 01/17/2023 COMP. METAB OLIC PANEL (14) eGFR 94 mL/mi n/1.7 3 >=60 Not Available [facility] Department [address] [place], [address], 01/18/2023 06:16:32 01/18/20 23 01/17/2023 COMP. METAB OLIC PANEL (14) BUN/creatini ne ratio 13.5 Not Available [facility] Department [address] [place], [address], 01/18/2023 06:16:32 01/18/20 23 01/17/2023 COMP. METAB OLIC PANEL (14) sodium 137.0 mmol/ L 136.0- 144.0 Not Available [facility] Department [address] [place], [address], 01/18/2023 06:16:32 01/18/20 23 01/17/2023 COMP. METAB OLIC PANEL (14) potassium 4.4 mmol/ L 3.5-5. 3 Not Available [facility] Department [address] [place], [address], 01/18/2023 06:16:32 01/18/20 23 01/17/2023 COMP. METAB OLIC PANEL (14) chloride 100 mmol/ l 101-11 1 below low normal Not Available [facility] Department [address] [place], [address], 01/18/2023 06:16:32 01/18/20 23 01/17/2023 COMP. METAB OLIC PANEL (14) carbon dioxide, total 25.2 mmol/ L 21.0-3 2.0 Not Available [facility] Department [address] [place], [address], 01/18/2023 06:16:32 01/18/20 23 01/17/2023 COMP. METAB OLIC PANEL (14) calcium 10.0 mg/dL 8.2-10 .0 Not Available [facility] Department [address] [place], [address], 01/18/2023 06:16:32 01/18/20 23 01/17/2023 COMP. METAB OLIC PANEL (14) protein, total 7.7 g/dL 6.7-8. 2 Not Available [facility] Department [address] [place], [address], 01/18/2023 06:16:32 01/18/20 23 01/17/2023 COMP. METAB OLIC PANEL (14) albumin 4.4 g/dL 3.5-5. 5 Not Available [facility] Department [address] [place], [address], 01/18/2023 06:16:32 01/18/20 23 01/17/2023 COMP. METAB OLIC PANEL (14) globulin, total 3.3 g/dL 1.5-4. 5 Not Available [facility] Department [address] [place], [address], 01/18/2023 06:16:32 01/18/20 23 01/17/2023 COMP. METAB OLIC PANEL (14) A/G ratio 1.3 Not Available [facility] Department [address] [place], [address], 01/18/2023 06:16:32 01/18/20 23 01/17/2023 COMP. METAB OLIC PANEL (14) bilirubin, total 0.5 mg/dL 0.0-1. 2 Not Available [facility] Department [address] [place], [address], 01/18/2023 06:16:32 01/18/20 23 01/17/2023 COMP. METAB OLIC PANEL (14) alkaline phosphatase 82.6 IU/L 42.0-1 21.0 Not Available [facility] Department [address] [place], [address], 01/18/2023 06:16:32 01/18/20 23 01/17/2023 COMP. METAB OLIC PANEL (14) AST (SGOT) 13.7 U/L 10.0-4 2.0 Not Available [facility] Department [address] [place], [address], 01/18/2023 06:16:32 01/18/20 23 01/17/2023 COMP. METAB OLIC PANEL (14) ALT (SGPT) 26.9 U/L 10.0-6 0.0 Not Available [facility] Department [address] [place], [address], 01/18/2023 06:16:32 01/18/20 23 01/18/2023 TSH+F REE T4 TSH 2.170 uIU/m L 0.450- 4.500 Not Available [facility] ([facility]) [address] [place], [address], 01/18/2023 07:16:02 01/18/20 23 01/18/2023 TSH+F REE T4 T4,free(dire ct) 1.22 NG/dL 0.82-1 .77 Not Available [facility] ([facility]) [address] [facility], [place], [address], 01/18/2023 07:16:02 01/18/20 01/18/2023 HEMOG LOBIN A1C hemoglobin A1C 5.4 % 4.8-5. 6 Predi abete s: 5.7 - 6.4 Diabe mansoor: >6.4 Glyce bonita contr ol for adult s with diabe mansoor: <7.0 Not Available [facility] ([facility]) [address], [place], [address], 01/18/2023 07:16:02 05/10/20 24 05/09/2024 XR, chest No observ ation record ed. [address] [place], [address], 05/12/2024 00:30:21 05/10/20 24 05/10/2024 CT, abdom en + pelvi s, w/ contr ast No observ ation record ed. [address] [place], [address], 05/12/2024 00:30:22 Result Notes None recorded. Problems Name Problem SNOMED Code Status Onset Date Resolution Date Notes Provider Name and Address Organization Details Recorded Time Hypertensive renal disease 20483275 Active Joanna Yang MD Attn: Elissa malhotra,[address] [place], [address], [facility] 6 11:56:42 Acute pharyngitis 331833040 Active Joanna Yang MD Attn: Elissa malhotra,[address] [place], [address], [facility] 6 11:56:42 Acne vulgaris 76509987 Active Joanna Yang MD Attn: Elissa malhotra,[address] [place], [address], [facility] 6 11:56:42 Morbid obesity 745007225 Active Joanna Yang MD Attn: Elissa malhotra,[address] [place], [address], [facility] - [facility] 6 14:50:52 Hernia of abdominal cavity 86633781 Active Joanna Yang MD Attn: Accountisabelle g,[address] [facility], [place], [address], [place] [facility] 6 11:56:42 Acute abscess of face 143660540 Active Joanna Yang MD Attn: Elissa g,[address] [facility], [place], [address], [place] [facility] 6 11:06:51 Contact dermatitis 03094055 Active Joanna Yang MD Attn: Accountisabelle g,[address] [facility], [place], [address], [place] [facility] 6 14:50:52 Migraine 85996877 Active Joanna Yang MD Attn: Elissa g,[address] [facility], [place], [address], [place] [facility] 6 14:50:52 Abdominal discomfort [id number] Linnette Yang MD Attn: Elissa malhotra,[address] [facility], [place], [address], [place] [facility] 6 14:50:52 Leukocytosis 778029322 Active Joanna Yang MD Attn: Elissa malhotra,[address] [facility], [place], [address], [place] [facility] 6 14:50:52 Hypertensive disorder 72432891 Active Leonard huggins [place] - [facility] 5 17:23:52 Essential hypertension 64455473 Active Joanna Yang MD Attn: Larisaisabelle malhotra,[address] [facility], [place], [address], [place] [facility] 6 14:50:52 Problem Notes None recorded. Procedures Surgical History Date Name Laterality Status Provider Name and Address Organization Details Recorded Time 2 Dilation and Curettage completed Leonard Oakley [facility] 08/05/2014 17:23:52 2 Caesarean Section completed Leonard Oakley [facility] 08/05/2014 17:23:52 Imaging Results Imaging Date Name Status LastModified by Organiz ation Details LastModified Time 05/09/2024 XR, chest completed [address] [place], [address], 05/12/2024 00:30:21 05/10/2024 CT, abdomen + pelvis, w/ contrast completed [address] [place], [address], 05/12/2024 00:30:22 Procedure Notes None recorded. Medical Equipment None Reported. Allergies No known drug allergies Medications Name Sig Start Date Stop Date Status Note LastModified by Organization Details LastModified Time Prescriptio n - Prior Authorizati on Request 12/04 completed Not Available Not Available Not Available losartan 50 mg tablet Take 1 tablet every day by oral route as directed for 90 days. 2022 active Not Available Not Available Not Avai lable amoxicillin 500 mg capsule Take 1 capsule every 12 hours by oral route with meals for 7 days. 12/04 completed Not Available Not Available Not Available betamethaso ne valerate 0.1 % topical ointment APPLY TOPICALLY TO AFFECTED AREAS ON ARMS AND NECK TWICE DAILY AVOID APPLICATI ON ON FACE 02/01 completed Not Available Not Available Not Available clonidine HCl 0.1 mg tablet Take 1 tablet twice a day by oral route for 30 days. 12/04 completed Not Available Not Available Not Available prednisone 10 mg tablet 11/18 completed Not Available Not Available Not Available albuterol sulfate 2.5 mg/3 mL (0.083 %) solution for nebulizatio n INHALE THE CONTENTS OF 1 VIAL 3 TIMES A DAY DIRECTED active Not Available Not Available No t Available triamcinolo ne acetonide 0.5 % topical cream APPLY A THIN LAYER TO THE AFFECTED AREA(S) BY TOPICAL ROUTE 2 TIMES PER DAY 12/21 completed Not Available Not Available Not Available azithromyci n 250 mg tablet TAKE 1 TABLETS (500 MG) BY ORAL ROUTE ONCE DAILY . 10/04 completed Not Available Not Available Not Available ibuprofen 800 mg tablet TAKE 1 TABLET BY MOUTH EVERY DAY NEEDED active Not Available Not Available No t Available fluconazole 150 mg tablet Take 1 tablet every day by oral route as directed for 7 days. 10/04 completed Not Available Not Available Not Available hydrocodone 5 mg-acetamin ophen 325 mg tablet 12/21 completed Not Available Not Available Not Available fluticasone propionate 0.05 % topical cream RUB IN GENTLY ONE APPLICATI ON TOPICALLY TO AFFECTED AREA DAILY 11/18 completed Not Available Not Available Not Available hydrocortis one 1 % topical ointment APPLY TO AFFECTED AREA(S) ON THE FACE TWICE DAILY NEEDED active Not Available Not Available No t Available ondansetron HCl 8 mg tablet 12/20 completed Not Available Not Available Not Available fluconazole 200 mg tablet 11/18 completed Not Available Not Available Not Available naltrexone 50 mg tablet Take 1 tablet every day by oral route as directed for 30 days. 11/18 completed Not Available Not Available Not Available prednisone 20 mg tablet 02/01 completed Not Available Not Available Not Available spironolact one 100 mg tablet TAKE 1 TABLET BY MOUTH EVERY DAY IN THE MORNING active Not Available Not Available No t Available clindamycin HCl 150 mg capsule Take 2 capsules 3 times a day by oral route for 10 days. 12/04 completed Not Available Not Available Not Available Wellbutrin SR 150 mg tablet, 12 hr sustained-r elease Take 1 tablet every day by oral route around the clock for 30 days. 11/18 completed Not Available Not Available Not Available metronidazo le 500 mg tablet TAKE 1 TABLET BY MOUTH EVERY 12 HOURS FOR 7 DAYS 06/06 completed Not Available Not Available Not Available phentermine 37.5 mg tablet TAKE 1 TABLET BY MOUTH DAILY BEFORE BREAKFAST active Not Available Not Available No t Available acetaminoph en 300 mg-codeine 30 mg tablet 12/04 completed Not Available Not Available Not Available amlodipine 5 mg tablet Take 1 tablet every day by oral route for 30 days. 12/04 completed Not Available Not Available Not Available ciprofloxac in 500 mg tablet TAKE 1 TABLET BY MOUTH EVERY 12 HOURS 11/18 completed Not Available Not Available Not Available hydrocodone 10 mg-acetamin ophen 325 mg tablet 12/20 completed Not Available Not Available Not Available doxycycline monohydrate 100 mg tablet 12/04 completed Not Available Not Available Not Available triamcinolo ne acetonide 0.1 % topical cream APPLY CREAM EXTERNALL Y TO AFFECTED AREA TWICE DAILY FOR 7 DAYS 02/01 completed Not Available Not Available Not Available acyclovir 800 mg tablet TAKE 1 TABLET BY MOUTH EVERY DAY DIRECTED active Not Available Not Available No t Available erythromyci n 250 mg tablet Take 2 tablets every day by oral route as directed for 30 days. 11/18 completed Not Available Not Available Not Available alprazolam 0.5 mg tablet 12/20 completed Not Available Not Available Not Available clindamycin 1 % topical gel APPLY A THIN LAYER TO THE AFFECTED AREA(S) BY TOPICAL ROUTE 2 TIMES PER DAY active Not Available Not Available No t Available amlodipine 10 mg tablet TAKE 1 TABLET BY MOUTH EVERY DAY 10/22 completed Not Available Not Available Not Available benzonatate 100 mg capsule Take 1 capsule 3 times a day by oral route as directed for 10 days. 04/08 completed Not Available Not Available Not Available cephalexin 500 mg capsule 10/04 completed Not Available Not Available Not Available tacrolimus 0.1 % topical ointment 11/18 completed Not Available Not Available Not Available triamcinolo ne acetonide 0.1 % topical ointment APPLY THIN COAT TO AFFECTED AREA TWICE A DAY active Not Available Not Available No t Available nystatin 100,000 unit/gram topical cream APPLY TO THE AFFECTED AREA(S) BY TOPICAL ROUTE 2 TIMES PER DAY 10/04 completed Not Available Not Available Not Available clotrimazol e-betametha sone 1 %-0.05 % topical cream 04/08 completed Not Available Not Available Not Available valsartan 320 mg tablet One po daily 11/18 completed Not Available Not Available Not Available progesteron e micronized 200 mg capsule TAKE 1 CAPSULE BY MOUTH EVERY DAY active Not Available Not Available No t Available hydrochloro thiazide 12.5 mg capsule TAKE 1 CAPSULE BY MOUTH EVERY DAY active Not Available Not Available No t Available hydrocortis one 2.5 % topical cream 11/18 completed Not Available Not Available Not Available montelukast 10 mg tablet Take 1 tablet every day by oral route as directed for 30 days. 04/08 completed Not Available Not Available Not Available hydrochloro thiazide 25 mg tablet TAKE 1 TABLET (25 MG TOTAL) BY MOUTH DAILY. active Not Available Not Available No t Available Pepcid 20 mg tablet Take 1 tablet twice a day by oral route for 30 days. 12/04 completed Not Available Not Available Not Available methylpredn isolone 4 mg tablets in a dose pack TAKE 6 TABLETS ON DAY 1 DIRECTED ON PACKAGE AND DECREASE BY 1 TAB EACH DAY FOR A TOTAL OF 6 DAYS 11/18 completed Not Available Not Available Not Available albuterol sulfate HFA 90 mcg/actuati on aerosol inhaler INHALE 2 PUFFS BY MOUTH EVERY 4 HOURS FOR RESCUE ONLY *MUST LAST 30 DAYS* active Not Available Not Available No t Available betamethaso ne dipropionat e 0.05 % topical ointment active Not Available Not Available Not Available losartan 100 mg tablet TAKE 1 TABLET BY MOUTH EVERY DAY active Not Available Not Available No t Available fluticasone propionate 50 mcg/actuati on nasal spray,suspe nsion USE 1 SPRAY(S) IN EACH NOSTRIL TWICE DAILY FOR RHINOSINU SITIS 12/20 completed Not Available Not Available Not Available metformin ER 500 mg tablet,exte nded release 24 hr Take 1 tablet every day by oral route as directed for 30 days. 05/21 completed Not Available Not Available Not Available doxycycline hyclate 100 mg tablet TAKE 1 TABLET BY MOUTH EVERY DAY WITH FOOD active Not Available Not Available No t Available loratadine 10 mg tablet TAKE 1 TABLET BY MOUTH ONCE DAILY FOR 60 DAYS FOR RHINOSINU SITIS 02/01 completed Not Available Not Available Not Available amoxicillin 875 mg-potassiu m clavulanate 125 mg tablet TAKE 1 TABLET BY MOUTH EVERY 12 HOURS AFTER MEALS FOR 7 DAYS active Not Available Not Available No t Available amoxicillin 500 mg-potassiu m clavulanate 125 mg tablet TAKE 1 TABLET BY MOUTH ONCE EVERY 12 HOURS AFTER MEALS FOR 7 DAYS 10/22 completed Not Available Not Available Not Available clindamycin phosphate 1 % topical solution APPLY A THIN LAYER TO THE AFFECTED AREA(S) BY TOPICAL ROUTE 2 TIMES PER DAY 10/04 completed Not Available Not Available Not Available azithromyci n 500 mg tablet Take 500mg once daily for 3 days, followed by 500mg once weekly for a total for 10 weeks. 10/04 completed Not Available Not Available Not Available nitrofurant oin monohydrate /macrocryst als 100 mg capsule 12/04 completed Not Available Not Available Not Available hydrochloro thiazide 12.5 mg tablet Take 2 tablets every day by oral route. 12/04 completed Not Available Not Available Not Available budesonide- formoterol HFA 160 mcg-4.5 mcg/actuati on aerosol inhaler INHALE 2 PUFFS BY MOUTH ONCE DAILY 2021 active Not Available Not Available Not Avai lable Dulera 200 mcg-5 mcg/actuati on HFA aerosol inhaler INHALE 2 PUFFS BY MOUTH TWICE DAILY DIRECTED FOR 30 DAYS FOR MAINTENAN CE 12/06 completed Not Available Not Available Not Available Adult Robitussin Peak Cold DM 10 mg-100 mg/5 mL oral liquid Take 10 mL every 4 hours by oral route as needed for 7 days. 04/08 completed Not Available Not Available Not Available Combivent Respimat 20 mcg-100 mcg/actuati on solution for inhalation Inhale 1 puff 4 times a day by inhalatio n route for 30 days. 12/04 completed Not Available Not Available Not Available PreviDent 5000 Booster Plus 1.1 % dental paste 12/04 completed Not Available Not Available Not Available Epiduo 0.1 %-2.5 % topical gel with pump 04/08 completed Not Available Not Available Not Available AirDuo RespiClick 232 mcg-14 mcg/actuati on breath activated Inhale 1 puff twice a day by inhalatio n route as directed for 30 days. 04/08 completed Not Available Not Available Not Available ID NOW COVID-19 Test Kit TEST DIRECTED 06/06 completed Not Available Not Available Not Available Vitals Date Recorded Body height Body mass index (BMI) Body weight Body temperature Systolic blood pressure Diastolic blood pressure Provider Name and Address Organization Details Last Updated DateTime 2 168.91 cm 46.1 kg/m2 920432. 79 g 98.6 [degF] 130 mm[Hg] 100 mm[Hg] Mally Almaraz RN [place] [facility] 2 12:13:55 Date Recorded Body height Body mass index (BMI) Body weight Systolic blood pressure Diastolic blood pressure Provider Name and Address Organization Details Last Updated DateTime 08/07/2022 168.91 cm 47.4 kg/m2 532263.5 3 g 130 mm[Hg] 84 mm[Hg] Felisha Nash MA [facility] 3 12:12:13 Date Recorded Body height Body mass index (BMI) Body weight Oxygen saturation Oxygen saturation in Arterial blood by Pulse oximetry Heart rate Systolic blood pressure Diastolic blood pressure Provider Name and Address Organization Details Last Updated DateTime 3 168.91 cm 46.6 kg/m2 554538. 56 g 98 % 98 % 86 /min 132 mm[Hg] 78 mm[Hg] Felisha Nash MA [facility] 3 12:40:57 Date Recorded Body height Body mass index (BMI) Body weight Oxygen saturation Oxygen saturation in Arterial blood by Pulse oximetry Heart rate Systolic blood pressure Diastolic blood pressure Provider Name and Address Organization Details Last Updated DateTime 3 168.91 cm 45.2 kg/m2 114960. 66 g 98 % 98 % 79 /min 134 mm[Hg] 88 mm[Hg] Felisha Nash MA [facility] 3 10:56:39 Date Recorded Body height Body mass index (BMI) Body weight Heart rate Oxygen saturation Oxygen saturation in Arterial blood by Pulse oximetry Systolic blood pressure Diastolic blood pressure Provider Name and Address Organization Details Last Updated DateTime 3 168.91 cm 45 kg/m2 309454. 64 g 68 /min 98 % 98 % 136 mm[Hg] 82 mm[Hg] Angie Bruno MA [facility] 3 12:04:42 Social History Question Answer Notes LastModified by Organizat ion Details LastModified Time Tobacco Smoking Status Never Smoker Leonard huggins [facility] 08/05/2014 17:23:52 Do You Have An Advance Directive? No Information not available 11/18/2020 What Is Your Level Of Alcohol Consumption? Occasional [email or web address] Information not available 04/07/2021 Are You Blind Or Do You Have Difficulty Seeing? No Information not available 11/18/2020 What Is Your Level Of Caffeine Consumption? None Information not available 03/02/2022 In The 14 Days Before Symptom Onset, Have You Had Close Contact With A Laboratory-confir med COVID-19 While That Case Was Ill? No Information not available 11/18/2020 In The 14 Days Before Symptom Onset, Have You Had Close Contact With A Person Who Is Under Investigation For COVID-19 While That Person Was Ill? No Information not available 11/18/2020 Have You Been To An Area Known To Be High Risk For COVID-19? No Information not available 11/18/2020 Are You Currently Employed? Yes Information not available 03/02/2022 Are You Deaf Or Do You Have Serious Difficulty Hearing? No Information not available 11/18/2020 What Type Of Diet Are You Following? SPECIFIC Low Carb Information not available 03/02/2022 What Is The Highest Grade Or Level Of School You Have Completed Or The Highest Degree You Have Received? 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 No Information not available 11/18/2020 What Was The Date Of Your Most Recent Tobacco Screening? 05/08/2023 [email or web address] Information not available 05/08/2023 What Is Your Relationship Status? Single Information not available 11/18/2020 Do You Use Your Seat Belt Or Car Seat Routinely? Yes Information not available 11/18/2020 Do You Have Smoke And Carbon Monoxide Detectors In Your Home? Yes Information not available 11/18/2020 Do You Feel Stressed (tense, Restless, Nervous, Or Anxious, Or Unable To Sleep At Night)? [id number] Information not available 11/18/2020 Do You Use Any Illicit Or Recreational Drugs? No Information not available 03/02/2022 Do You Use Sunscreen Routinely? No Information not available 11/18/2020 Has Tobacco Cessation Counseling Been Provided? No Patient Is Non-Smoker , And Does Not Use Any Form Of Tobacco. Information not available 12/21/2020 Do You Or Have You Ever Used Any Other Forms Of Tobacco Or Nicotine? No Information not available 12/21/2020 Sex: Female Functional Status Question Answer Note LastModified by Organization D etails LastModified Time Are you able to care for yourself? Yes Information not available 11/18/2020 What is your exercise level? Moderate Information not available 11/18/2020 Mental Status None recorded. Family History Relationship Description Onset Age of this Age Resolved Age Notes LastModified by Organization Details LastModified Time Father No current problems or disability [email or web address] Not available 11/18 14:46:10 Mother No current problems or disability [email or web address] Not available 11/18 14:46:10 Medical History Condition Response Coronary Artery Disease N Other N Atrial Fibrillation N High Blood Pressure Y Kidney or Bladder Problems N Thyroid Problems N GI Problems N Depression N COPD N Blood Clots N Skin Problems N Anemia N Heart Attack (AL) N Anxiety Disorder N Diabetes N Muscle, Joint, or Bone Problems N Seizures/Epilepsy N Acid Reflux (GERD) N Cancer N Stroke N Asthma N Allergies N High Cholesterol N Hepatitis N Liver Disease N Headaches N Heart Failure N Osteoporosis N Gynecological History Statement/Question Response Date of LMP 04/08/2023 Frequency of Cycle (Q days) 30 Menses Monthly Y Duration of Flow (days) 3 Age at Menarche 11 Current Control Method None Age at First Child 17 LMP Definite Obstetrics History GPAL:G 1 P 0 1 2 1 Type Value Multiple Births 0 Induced 0 Spontaneous 1 Premature 1 Living 1 Ectopics 1 Total 1 Past Encounters Encounter ID Performer Location Encounter Start Date Encounter Closed Date Diagnosis/Indication Diagnosis SNOMED-CT Code Diagnosis ICD10 Code Diagnosis Note [id number] MD Garth Day (Adult Med) [address] [place] [address] 08/05/2014 16:37:51 08/06/2014 15:46:21 Essential hypertension 15390467 History of asthma 081332220 [id number] MD Garth Day (Adult Med) [address] [place] [address] 09/01/2014 16:30:10 09/02/2014 11:49:34 Essential hypertension 58955727 History of asthma 118592688 Adult heal th examination [id number] Ashley Kessler is Garth (Adult Med) [address] [place] [address] 11/11/2015 10:59:34 11/11/2015 12:01:07 Essential hypertension 00518547 I10 History of asthma 541954 007 Z87.09 Hypertensi ve renal disease 81738429 I12.9 Acute pharyngitis 643366 003 J02.9 Acne vulgaris 12639652 L 70.0 Morbid obesity 058028793 E66.01 Hernia of abdominal cavity 18075283 K46.9 [id number] Joanna Yang MD [facility] (Adult Med) [address] [place] [address] 0 05/08/2016 13:53:40 05/08/2016 17:41:21 History of asthma 589366604 Z87.09 Essential hypertension 92702083 I10 Contact dermatitis 59958 004 L25.9 Morbid obesity 990445662 E66.01 Migraine 25673643 G43.90 9 Abdominal discomfort 433 21709 R10.9 Leukocytosis 229066514 D 72.168 [id number] [facility] [address] [place] [address] 0 11/16/2016 15:37:47 11/16/2016 17:54:12 Asthma 943217581 J45.909 History of asthma 139943 007 Z87.09 Migraine 10200790 G43.90 9 Hypertensive disorder 38 003919 I10 Low salt diet. Will monitor BP in the coming visit. Contact dermatitis 15317 004 L25.9 [id number] [facility] [address] [place] [address] 0 12/04/2017 16:53:00 12/04/2017 18:26:04 Essential hypertension 79039796 I10 Due to mildly elevated sugar, will D/C HCTZ. and put on losartan. Hyperglycemia 12000920 R 73.9 Asthma 459819391 J45.90 9 Chronic di sease of skin 939400881 L98.9 Chronic he adache disorder 396741562 G44.89 She refuses the zantac or PPI. [id number] JoMD Garth Danielson (Adult Med) [address] [place] [address] 0 02/03/2018 17:10:12 02/03/2018 18:29:27 Increased frequency of urination 965417980 R35.0 Hyperglycemia 02816428 R 73.9 Leukocytosis 940562139 D 72.829 Skin lesion 65490044 L98 .9 Essential hypertension 11182553 I10 Due to mildly elevated sugar, will D/C HCTZ. and put on losartan. [id number] MD Garth Day (Adult Med) [address] [place] [phone] 0 04/08/2018 16:35:43 04/09/2018 10:59:46 Essential hypertension 74619864 I10 Due to mildly elevated sugar, will D/C HCTZ. and put on losartan. She has enough medication . Allergic c ontact dermatitis 470579360 L23.9 Morbid obesity 772170118 E66.01 Diet, exercise and lose weight. [id number] MD Garth Day (Adult Med) [address] [place] [address] 0 11/14/2018 10:53:49 11/14/2018 11:44:38 Essential hypertension 74490888 I10 Due to mildly elevated sugar, will D/C HCTZ. and put on losartan. She has enough medication . Try to reduce the frequency and dose of ibuprofen. discussed with patient to adjust dose of her losartan, luis agreed. Morbid obesity 415560791 E66.01 Diet, exercise and lose weight. She can not take wellbutrin and naltrexone . Asthma 295882222 J45.90 9 Needs new nebulizer and refills of proair, symbicort, and albuterol solution. Metabolic syndrome X 237 145308 E88.81 Exercise, diet, and lose weight. On metformin. History of asthma 714047 007 Z87.09 Stable. [id number] MD Garth Day (Adult Med) [address] [place] [address] 0 01/15/2019 09:54:42 01/16/2019 09:38:46 Tinea corporis 47645055 B35.4 Discussed with patient. Chronic he adache disorder 865641112 G44.89 She refuses the zantac or PPI. Herpes labialis 0615861 B00.1 Discussed with patient, agreed for the treatment. [id number] Joanna Yang MD [facility] (Adult Med) [address] [place] [address] 0 05/21/2019 12:00:46 05/22/2019 09:32:35 Morbid obesity 841802482 E66.01 Diet, exercise and lose weight. She can not take wellbutrin and naltrexone . She will call in some thing elase for her weight. Hypertensive disorder 38 573617 I10 Low salt diet. Will monitor BP in the coming visit. Essential hypertension 11530140 I10 Due to mildly elevated sugar, will D/C HCTZ. and put on losartan. She has enough medication . Try to reduce the frequency and dose of ibuprofen. discussed with patient to adjust dose of her losartan, luis agreed. Chronic he adache disorder 030432465 G44.89 She refuses the zantac or PPI. Tinea corporis 18372906 B35.4 Discussed with patient. Asthma 165951456 J45.90 9 Needs new nebulizer and refills of proair, symbicort, and albuterol solution. Acne 50913296 L70.9 Discussed with patient. wanting azithromyc in. [id number] Joanna Yang MD [facility] (Adult Med) [address] [place] [id number] 0 10/05/2019 10:08:10 10/05/2019 11:29:47 Morbid obesity 649254821 E66.01 Diet, exercise and lose weight. She can not take wellbutrin and naltrexone . She will call in some thing elase for her weight. Discussed with patient. Essential hypertension 76280997 I10 Due to mildly elevated sugar, will D/C HCTZ. and put on losartan. She has enough medication . Try to reduce the frequency and dose of ibuprofen. discussed with patient to adjust dose of her losartan, luis agreed. Chronic low back pain 27 6495796 M54.5 She is on iibuprofen . Asthma 250434459 J45.90 9 Needs new nebulizer and refills of proair, symbicort, and albuterol solution. Chronic he adache disorder 500942840 G44.89 She refuses the zantac or PPI. [id number] MD Garth Day (Adult Med) [address] [place] [address] 0 12/15/2019 08:22:49 12/16/2019 16:23:30 Chronic eczema 87769159 L30.9 [id number] GAMALIEL Tucker NP Jossy sheldon [address] [place] [address] 01/04/2020 09:21:23 01/04/2020 15:03:21 Viral screening 807406542 Z11.59 D/w pt the current pandemic of COVID-19 and call for social isolation in order to blunt the curve and minimize risk and spread. Encouraged patient and family to take restrictio ns seriously. They have verbalized understand ing of such. Viral syndrome 493432723 B34.9 Coronavirus infection 18 3588223 B34.2 [id number] MD Garth Day (Adult Med) [address] [place] [address] 0 05/25/2020 08:17:34 05/26/2020 11:38:57 Essential hypertension 15971339 I10 Due to mildly elevated sugar, will D/C HCTZ. and put on losartan. She has enough medication . Try to reduce the frequency and dose of ibuprofen. discussed with patient to adjust dose of her losartan, luis agreed. Asthma 387015290 J45.90 9 Needs new nebulizer and refills of proair, symbicort, and albuterol solution. Pruritic rash 91974572 L 28.2 Discussed with patient, wants refill of flagyl, metronidaz ole. Chronic he adache disorder 460680494 G44.89 She refuses the zantac or PPI. [id number] [facility] [address] [place] [address]254[address] 0 11/18/2020 14:29:06 11/21/2020 09:10:56 Chronic eczema 45330879 L30.9 Not responding to topical cream, she agreed the referral of dermatolog y. On the face , arms and hands, dark in color , flat, she has lost about 21 pounds since last visit, might be acanthosis nigricans. She wants second opinion. [id number] [facility] [address] [place] [address]12[address] 0 12/21/2020 09:44:36 12/22/2020 12:47:17 Essential hypertension 99888182 I10 Due to mildly elevated sugar, will D/C HCTZ. and put on losartan. She has enough medication . Try to reduce the frequency and dose of ibuprofen. discussed with patient to adjust dose of her losartan, she agreed. Hypertensive disorder 38 469574 I10 Low salt diet. Will monitor BP in the coming visit. [id number] Joanna Yang MD [facility] (Adult Med) [address] [place] [phone] 0 02/01/2021 11:10:22 02/02/2021 13:04:45 Partial obstruction of small bowel 162818134 K56.690 Released at hospital. Irritable bowel syndrome 07501989 K58.9 Will refer to GI specialist . Morbid obesity 400809862 E66.01 Diet, exercise and lose weight. She can not take wellbutrin and naltrexone . She will call in some thing elase for her weight. Discussed with patient. Non-alcoho lic fatty liver 689928714 K76.0 Exercise , lose weight , advised to repeat LFT in few months. she agreeed. Glycerol i ntolerance syndrome 586890230 E74.89 Will test glucose and HGA1c. [id number] [facility] [address] [place] [address] 8[address]182 0 04/07/2021 11:54:55 04/10/2021 07:08:04 Hypertensive disorder 70871094 I10 Low salt diet. Will monitor BP in the coming visit. Chronic low back pain 27 9776172 M54.5 She is on ibuprofen. Advised her to stay on ibuprofen as needed bases, otherwise blood pressure might go up, she agreed. Morbid obesity 287690892 E66.01 Diet, exercise and lose weight. She can not take wellbutrin and naltrexone . She will call in some thing elase for her weight. Discussed with patient. [id number] MD Garth Day (Adult Med) [address] [place] [address] 0 10/17/2021 11:30:39 10/18/2021 13:43:26 Acne 29260453 L70.9 Discussed with patient. wanting azithromyc in. Multiple joint pain 3567 8005 M25.50 Wants refill ibuprofen. Hypertensive disorder 38 045540 I10 Low salt diet. Will monitor BP in the coming visit. BP 128/84 mm HG today 10-17-2021 . [id number] MD Garth Day (Adult Med) [address] [place] [address] 0 12/20/2021 11:31:27 12/21/2021 08:12:31 Hypothyroidism 81297482 E03.9 Histroy of thyroid disorder, will screen thyroid function. Neck is supple, no nodule , no tenderness , no enlarged throid. Increased blood pressure 05973239 R03.0 Advised to minimize the ibuprofen and home blood pressure monitoring , she agreed. Heart regular, no murmur, Abdomen soft, obese, No edema of legs.feet today. Disorder of skin 2920749 5 L98.9 She wants to refill metronidaz ole and triamcinol one cream Asthma 725842172 J45.90 9 Needs new nebulizer and refills of proair, symbicort, and albuterol solution. Lungs clear to auscultati on., no wheezing. Edema of l ower extremity 860804409 R60.0 No edema today , she takes HCTZ as needed . Morbid obesity 447356093 E66.01 Diet, exercise and lose weight. She can not take wellbutrin and naltrexone . She will call in some thing elase for her weight. Discussed with patient. Will screen thyroid functions today. [id number] MD Garth Day (Adult Med) [address] [place] [address] [phone] 0 03/02/2022 11:59:55 03/05/2022 10:15:57 Cystic acne 28302256 L70.0 Lumps on face, Gynecomastia 9596751 N62 She believe that her big breasts have caused her back pain, wants to be referred to plastic surgeon Dr. Keaton Huang [id number] MD Garth Day (Adult Med) [address] [place] [address] 12207-279 0 08/07/2022 11:57:25 08/08/2022 16:11:21 Morbid obesity 514653712 E66.01 Diet, exercise and lose weight. She can not take wellbutrin and naltrexone . She will call in some thing elase for her weight. Discussed with patient. Will screen thyroid functions today. and insulin resisitena ce such as type 2 DM and screening of thyroid functions. BMI is 47.4 as 08-07-2022 . Macromastia 045679949 N6 2 Big breasts , makes her chronic back pain. and weight issue, agreed for the pastic surgeon evaluation . Influenza vaccination declined 348578262 Z28.21 She refused today 08-07-2022 . [id number] MD Garth Day (Adult Med) [address] [place] [address] 99280-482 0 10/22/2022 12:15:30 10/23/2022 14:04:13 Essential hypertension 70302184 I10 Due to mildly elevated sugar, will D/C HCTZ. and put on losartan. She has enough medication . Try to reduce the frequency and dose of ibuprofen. discussed with patient to adjust dose of her losartan, she agreed. BP as 10-22-22, is 132.78. she prefers losartan., will D.C amlodipine and HCTZ. Multiple joint pain 3567 8005 M25.50 Wants refill ibuprofen. Disorder of skin 5444491 5 L98.9 She wants to refill metronidaz ole and triamcinol one ointment. Influenza vaccination declined 155940439 Z28.21 She refused today 08-07-2022 .and 10-22-22. [id number] MD Garth Day (Adult Med) [address] [place] [address] 53736-437 0 01/24/2023 10:34:58 01/28/2023 14:05:28 Acne vulgaris 63097821 L70.0 Med refills. Essential hypertension 02593781 I10 Due to mildly elevated sugar, will D/C HCTZ. and put on losartan. She has enough medication . Try to reduce the frequency and dose of ibuprofen. discussed with patient to adjust dose of her losartan, she agreed. BP as 10-22-22, is 132.78. she prefers losartan., will D.C amlodipine and HCTZ. Morbid obesity 300071268 E66.01 Diet, exercise and lose weight. She can not take wellbutrin and naltrexone . She will call in some thing elase for her weight. Discussed with patient. Will screen thyroid functions today. and insulin resistance such as type 2 DM and screening of thyroid functions. BMI is 47.4 as 08-07-2022 .Her weight has improve over the time. At peak BMI/weight were 54.2/ 341.12 LB, 10-05-2019 . down to 293 LB , 10-22-2022 . Now is down to 45.2/284 LB . On 01-17-23, A1C, CMP and T SH/FT4 were normal, copies of report provided to her to day. . Multiple joint pain 3567 8005 M25.50 Wants refill ibuprofen. Disorder of skin 0010683 5 L98.9 She wants to refill metronidaz ole and triamcinol one ointment. Influenza vaccination declined 021285150 Z28.21 She refused today 08-07-2022 .and 10-22-22. Macromastia 650536414 N6 2 Big breasts , makes her chronic back pain. and weight issue, agreed for the plastic surgeon evaluation . Asthma 378339182 J45.90 9 Needs new nebulizer and refills of proair, symbicort, and albuterol solution. Lungs clear to auscultati on., no wheezing. [id number] Joanna Yang MD [facility] (Adult Med) [address] [place] [address] [phone] 0 05/08/2023 11:43:12 05/13/2023 14:32:54 Macromastia 576264317 N62 Big breasts , makes her chronic back pain. and weight issue, agreed for the plastic surgeon evaluation . Chronic low back pain 27 5490018 M54.50 Needs 3 months PT, myles order. Morbid obesity 549548201 E66.01 Diet, exercise and lose weight. She can not take wellbutrin and naltrexone . She will call in some thing elase for her weight. Discussed with patient. Will screen thyroid functions today. and insulin resistance such as type 2 DM and screening of thyroid functions. BMI is 47.4 as 08-07-2022 .Her weight has improve over the time. At peak BMI/weight were 54.2/ 341.12 LB, 10-05-2019 . down to 293 LB , 10-22-2022 . Now is down to 45.2/284 LB . On 01-17-23, A1C, CMP and T SH/FT4 were normal, copies of report provided to her to day. . BMI is 45. as 05-08-23. Acne vulgaris 34501510 L 70.0 Med refills. Influenza vaccination declined 541644104 Z28.21 She refused today 08-07-2022 .and 10-22-22. and today 05-08-23. Health Concerns Section Related Observation LastModified by Organization Detai ls LastModified Time None Recorded Concern Status LastModified by Organization Details LastModified Time None Recorded Advance Directives Directive N: Payers Encounter Date Sequence Insurance Name Policy Number Policy Guzman Covered Member ID Guzman Member ID Guarantor Name 03/02/2022 1 [place] [id number] Oral Joy [id number] [facility] 03/02/2022 2 [place] [facility] [id number] [facility] 08/07/2022 1 [place] [id number] Oral Joy [id number] [facility] 08/07/2022 2 [place] [facility] [id number] [facility] 10/22/2022 1 [id number] Oral Joy [id number] [facility] 10/22/2022 2 [place] [facility] [id number] [facility] 01/24/2023 1 [place] [id number] Oral Joy [id number] [facility] 01/24/2023 2 [place] [facility] [id number] [facility] 05/08/2023 1 [place] [id number] Oral Joy [id number] Oral Joy 05/08/2023 2 [place] [facility] [place] OF PUBLIC AID Kerline Joy [id number] Oral Joy Notes Date Note Type Note Provider Name and Address Organization Details Recorded Time 03/02/2022 text/html Office visit, allergic to losartan. history of back pain and facial acne. Joanna Yang MD Attn: Accounting,204 1 [facility], [place], [place], [address] [place] [address], [facility] 03/02/2022 13:07:49 08/07/2022 text/html Office visit, allergic to losartan. morbid obesity, and big breasts. caused her weight and back problems. Joanna Yang MD Attn: Accounting,204 1 [facility], [place], [place], [address] [place] [address], [facility] 01/24/2023 12:10:15 10/22/2022 text/html ER F/U for hypertension. was put on amlodipine /HCTZ, but skin broke out. allergic to ? HCTZ, she denied she is allergic to losartan. Also wants to refill ibuprofen and triamcinolon oint ment for her skin condition. Joanna Yang MD Attn: Accounting,204 1 [facility], [place], [place], [address] [place] [address], [facility] 10/22/2022 13:14:55 01/24/2023 text/html Office vist, NKD A, except losartan. History of hypertension. skin condition of face, and due to large breast which caused her joints and back to be hurting, will again refer to plastic surgeon for evaluation she siad thar her health insurance approved such referral. Mad med refills. Joanna Yang MD Attn: Accounting,204 [address] [facility], [place], [address], [facility] 01/24/2023 12:03:41 05/08/2023 text/html Office visit, NKDA. macromastia, morbid obesity, chronic lower back pain and acne. PT and med refill. Joanna Yang MD Attn: Accounting,204 1 [facility], [place], [address], [place] [facility] 05/08/2023 14:10:43 OBGyn Episode No OBEpisode recorded.
--- OUTSIDE RECORDS SUMMARY | 2024-09-20 10:28 | XMS_ITS | Data Portability ---
Author Organization 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 Patient will come back in a year unless there are new symptoms. [email or web address] Not available 02/13/2021 11:31:22 Plan of Treatment Reminders Order Date Submit Date Provider Last Modified By Organization Details Last Modified Time Details Appointments None recorded. Lab dhea-sulfat e, serum 2021 022 [facility] (Lab), [address], [place], [address], 14:56:58 estradiol, serum 2021 022 [facility] (Lab), [address], [place], [address], 14:56:58 FSH (follicle-s timulating hormone), serum 2021 022 [facility] (Lab), [address] [place], [address], 14:57:00 HbA1c (hemoglobin A1c), blood 2021 022 [facility] (Lab), [address] [place], [address], 14:57:01 lh (luteinizin g hormone), serum 2021 [facility] (Lab), [address] [facility], [place], [address], 14:56:58 progesteron e, serum 2021 [facility] (Lab), [address] [place], [address], 14:56:59 prolactin, serum 2021 [facility] (Lab), [address] [place], [address], 14:56:59 shbg (sex hormone-bin ding globulin), serum 2021 [facility] (Lab), [address] [place], [address], 14:57:01 TSH, serum or plasma 2021 [facility] (Lab), [address] [place], [address], 14:57:00 testosteron e free/testos terone total, ratio, serum 2021 [facility] (Lab), [address] [place], [address], 14:57:02 test, urine 2020 021 jose Graham, [address], [address], [place], [address], 12:22:58 Referral None recorded. Procedures None recorded. Surgeries hysteroscop y, with endometrial ablation (SURG) 2020 021 [email or web address] Chapito Peterson MD, [address], [place], [address], 18:39:30 Imaging None recorded. Medication Orders progesteron e micronized 200 mg capsule 2020 021 [email or web address] [id number], [address], [place], [address], 11:30:02 Patient TargetsNo targets recorded. Patient InstructionsNo instructions recorded. Reason for Referral None Reported. Results Created Date Observation Date Name Description Value Unit Range Abnormal Flag Note LastModifiedBy Organization Detail LastModifiedTime 02/14/2002/13/2021 IMAGE GUIDE D PAP AND HPV REGAR DLESS image guided Pap, HPV regardless of Pap result SEE RESULT S BELOW abnormal CASE REPOR T: Cytol ogy Gynec ologi romario Repor t Case: [id number] Autho jennie malhotra Provi brian: Gemma Peterson MD Colle cted: 02/13 1313 Order ing Locat ion: [place] [facility] Recei med: 02/13 2355 First Scree n: Laurie jiang, [place] am, CT Rescr een: Chiki Robbins ed, CT Speci men: Scree kelli Pap - Image d, Cervi x STATE MENT OF ADEQU ACY: Satis facto ry for evalu ation Trans forma tion zone compo nent absen t FINAL DIAGN OSIS: Negat carlton for Intra epith elial Lesio n or Malig jillian (NIL) Shift in francia sugge stive of bacte rial vagin osis Elect henry hernandes roseanne d by Chiki Robbins ed, CT on 2020 at 12:16 PM ----- ----- ----- ----- ----- ----- ----- ----- ----- ----- ----- ----- ----- ----- ----- ----- ----- ---- HPV RESUL TS: HPV mRNA E6/E7 : Posit carlton - HPV mRNA Detec brown HPV GENOT YPE 16 (MARIO) : Not Detec brown HPV GENOT YPE 18/45 (MARIO) : Not Detec brown NOTE: This high risk HPV mRNA assay detec ts fourt een high- risk HPV types (16, 18, 31, 33, 35, 39, 45, 51, 52, 56, 58, 59, 66, 68) witho ut diffe renti ation . This assay can diffe renti ate HPV 16 from HPV 18/45 , but does not diffe renti ate betwe en HPV 18 and HPV 45. A negat carlton HPV 16, 18/45 genot ype assay resul t does not exclu de the possi bilit y of cytol ogic abnor malit ies or of futur e or under lying JACQUELINE 1, JACQUELINE 3 or cance r. CHART ABLE COMME NT: Note: This speci men was revie wed by a Cytot echno logis t and/o r Patho logis t (as indic ated in this repor t) after evalu ation using the Thinp rep Imagi ng Syste m. CLINI ROMARIO INFOR MATIO N: Menst rual Statu s: LMP (if appli cable ): 021 Clini romario Histo ry/Pr eviou s Pap: Type of Neopl maureen (if appli cable ): Other Histo ry: Hormo selvin (if appli cable ): PAP EDUCA JACLYN L NOTE: The Pap Test is a scree kelli test with an inher ent false negat carlton rate. Liqui d-bas e sampl ing may decre ase, but will not elimi katlin, false negat carlton resul ts. A negat carlton resul t does not precl ude the prese nce and/o r devel opmen t of disea se, since the prese nce of abnor mal cells in the sampl e depen ds on the locat ion of the lesio n and sampl ing techn ique. Bettye nued regul ar scree kelli is the best metho d of cance r preve ntion . If repor brown cytol ogic findi ng do not corre late with physi romario and/o r histo rical findi ngs, furth er inves tigat ion is recom mercedes d, as clini ritesh terrazas nted. Not Available [facility] (Lab) [address], [place], [address], 02/15/2021 18:48:50 07/07/20 21 07/07/2021 pregn lawanda test, urine HCG negati ve Not Available [place] [address], [place], [address], 07/07/2021 12:22:47 12/19/19 22 12/18/2021 DHEA SULFA TE DHEA-sulfate 314 ug/dL Femal e Range s Age(y ) Range (ug/d L) 10-15 34-28 0 15-20 65-36 8 20-25 148-4 07 25-35 99-34 0 35-45 61-33 7 45-55 35-25 6 55-65 19-20 5 65-75 9-246 > 75 12-15 4 Not Available [facility] (Lab) [address], [place], [address], 12/21/2021 14:56:57 12/19/19 22 12/18/2021 LH (LUTE NIZIN G HORMO NE) LH 5.3 mIU/m L This assay was perfo rmed using [employer] ratio n reage nts and test kits. Value s obtai leonard with other assay metho ds or kits canno t be used inter [facility] . Femal es Mid-F ollic ular: 2.4-1 2.6 mIU/m L Mid-C ycle: 14.0- 95.6 mIU/m L Mid-L uteal : 1.0-1 1.4 mIU/m L Postm enopa use: 7.7-5 8.5 mIU/m L Not Available [facility] (Lab) [address], [place], [address], 12/21/2021 14:56:58 12/19/19 22 12/18/2021 ESTRA DIOL estradiol 45.4 pg/mL This assay was perfo rmed using [employer] reage nts and test kits. Value s obtai leonard with other assay metho ds or kits canno t be used inter [facility] . Femal e Estra diol Range s: Folli cular phase 12.4- 233 pg/mL Ovula tion phase 41.0- 398 pg/mL Lutea l phase 22.3- 341 pg/mL Postm enopa usal< 5-138 pg/mL Healt hy Pregn ant Women 1st Trime ster1 54-32 43 pg/mL 2nd Trime ster1 561-2 1280 pg/mL 3rd Trime ster8 525-> 14190 pg/mL Not Available [facility] (Lab) [address] [place], [address], 12/21/2021 14:56:58 12/19/19 22 12/18/2021 PROGE STERO NE progesterone 0.38 NG/mL This assay was perfo rmed using [employer] n reage nts and test kits. Value s obtai leonard with other assay metho ds or kits canno t be used inter [facility] . Femal e Proge stero ne Range s: Folli cular phase 0.06- 0.89 ng/mL Ovula tion phase 0.12- 12.00 ng/mL Lutea l phase 1.83- 23.90 ng/mL Postm enopa usal< 0.05- 0.13 ng/mL Healt hy Pregn ant Women 1st Trime ster1 1.0-4 4.30 2nd Trime ster2 5.40- 83.30 3rd Trime ster5 8.70- 214.0 0 Not Available [facility] (Lab) [address] [facility], [place], [address], 12/21/2021 14:56:59 12/19/19 22 12/18/2021 PROLA CTIN prolactin, total 10.90 NG/mL 4.79-2 3.30 This assay was perfo rmed using [employer] n reage nts and test kits. Value s obtai leonard with other assay metho ds or kits canno t be used inter [facility] augustine . Not Available [facility] (Lab) [address] [facility], [place], [address], 12/21/2021 14:56:59 12/19/19 22 12/18/2021 FSH FSH 10.3 mIU/m L This assay was perfo rmed using [employer] reage nts and test kits. Value s obtai leonard with other assay metho ds or kits canno t be used inter [facility] . Femal es Folli cular : 3.5-1 2.5 mIU/m L Ovula tion: 4.7-2 1.5 mIU/m L Lutea l: 1.7-7 .7 mIU/m L Postm enopa use: 25.8- 134.8 mIU/m L Not Available [facility] (Lab) [address] [facility], [place], [address], 12/21/2021 14:57:00 12/19/19 22 12/18/2021 TSH, REFLE X FREE T4 TSH 1.48 uIU/m L 0.30-5 .33 Not Available [facility] (Lab) [address] [facility], [place], [address], 12/21/2021 14:57:00 12/19/19 22 12/18/2021 HUMAN SEX HORMO NE CHRISTIANNE NG GLOBU FABY sex hormone binding globulin 54.7 nmole s/L 18.2-1 35.5 Not Available [facility] (Lab) [address] [facility], [place], [address], 12/21/2021 14:57:01 12/19/19 22 12/18/2021 HEMOG LOBIN A1C hemoglobin A1C 5.7 % 0-5.6 high The Ameri can [employer] mans[facility] [employer] iatio n recom mends that a prima ry goal of therdanielle marquez be a HBA1C of < 7% and that physi ciatayler puentes d reeva luate the treat ment regim en in patie nts with HBA1C value s consi stent ly > 8%. <5.7% Leigha l 5.7 - 6.4% Incre ased risk for diabe mansoor >=6.5 % Diagn ostic of diabe mansoor <7.0% Goal of thera py >8.0% Actneri lee stealma Not Available [facility] (Lab) [address] [facility], [place], [address], 12/21/2021 14:57:01 12/19/19 22 12/18/2021 TESTO STERO NE, FREE( DIALY SIS) AND TOTAL (LC/M S/MS) testosterone , total 26 NG/dL 2-45 For addit ional denice jeffers e refer to http: //marcio lyman.mary stdia mark ics.c om/fa q/Tot alTes toste Hi CMSMS (This link is being provi ded for harjinder bryant/ educa jaclyn l purpo ses only. ) This test was devel oped and its kortney tical perfo rmanc e jocelyn cteri stics have been deter mined by [employer]stic [employer]. It has not been clear ed or appro med by the FDA. This assay has been valid ated pursu ant to the CLIA regul ation s and is used for clini romario purpo ses. Not Available [facility] (Lab) [address] [facility], [place], [address], 12/21/2021 14:57:02 12/19/1912/18/2021 TESTO STERO NE, FREE( DIALY SIS) AND TOTAL (LC/M S/MS) testosterone , free 2.7 pg/mL 0.1-6. 4 This test was devel oped and its kortney tical perfo rmanc e jocelyn cteri stics have been deter mined by [employer] ostic [employer]. It has not been clear ed or appro med by the FDA. This assay has been valid ated pursu ant to the CLIA regul ation s and is used for clini romario purpo ses. Perfo rming Organ izati on Harjinder lyman: Site ID: [id number] Name: [facility] Suzy lion Addre ss: [id number] [place] [address] Direc tor: Navarro faulkner M.D. Not Available [facility] (Lab) [address], [place], [address], 12/21/2021 14:57:02 12/19/19 22 12/18/2021 urina lysis , dipst ick Leukocytes TRACE Not Available [facility] [address], [place], [address], 12/18/2021 11:34:19 12/19/1912/18/2021 urina lysis , dipst ick Blood +++ Not Available [place] [address], [place], [address], 12/18/2021 11:34:19 Result Notes None recorded. Problems Name Problem SNOMED Code Status Onset Date Resolution Date Notes Provider Name and Address Organization Details Recorded Time Syphilis test finding [id number] Completed 201711/22/2020 Encntr screen for infectio ns w sexl mode of transmis s;Record ed Elsewher e: No Locat ion: [facility] S ource: [employer] Inspector andrew: N Practi ce ID: 0001 Devin lable Time: 10:30:00 AM Maribell huggins [facility] 11:52:14 Infectio n screenin g Completed 201711/22/2020 Encounte r for screenin g for oth infec/pa rastc diseases ;Recorde d Elsewher e: No Locat ion: [facility] S ource: [employer] Inspector andrew: N Practi ce ID: 0001 Devin lable Time: 10:30:00 AM Maribell huggins [facility] 11:52:03 Screenin g for malignan t neoplasm of cervix Completed 09/11/ 2018 11/22/2020 Encounte r for screenin g for malignan t neoplasm of cervix;R ecorded Elsewher e: No Locat ion: [facility] S ource: [employer] Inspector andrew: N Practi ce ID: 0001 Devin lable Time: 10:30:00 AM Maribell huggins [facility] 11:52:09 Hyperten sive disorder [id number] Completed 201811/22/2020 Hyperten iram;Rec orded Elsewher e: No Locat ion: [facility] S ource: [employer] Inspector andrew: N Practi ce ID: 0001 Devin lable Time: 01:00:00 PM Maribell huggins [facility] 11:52:[address] Concept Completed 201811/22/2020 Encntr for heel seater exam (general ) (routine ) w/o abn findings ;Recorde d Elsewher e: No Locat ion: [facility] N Practi ce ID: 0001 Devin lable Time: 01:00:00 PM Maribell huggins [facility] 11:52:12 Educatio n Completed 201811/22/2020 Encounte r for oth general cnsl and advice on contrace ption;Pr actice ID: 0001 Maribell huggins [facility] 11:51:58 Insertio n of intraute rine contrace ptive device Completed 201811/22/2020 Encounte r for insertio n of intraute rine contrace ptive device;P ractice ID: 0001 Maribell huggins [facility] 11:52:06 Pregnanc y test negative [id number] Completed 201811/22/2020 Encounte r for pregnanc y test, result negative ;Practic e ID: 0001 Maribell huggins [facility] 11:52:08 Contrace ptive sheath status [id number] Completed 201811/22/2020 Encounte r for routine checking of intraute rine contrace p dev;Prac glenn ID: 0001 Maribell huggins, [facility] 11:51:55 Body mass index 30+ - obesity [id number] Completed 201711/22/2020 Body mass index (BMI) 50-59.9 , adult;Re corded Elsewher e: No Locat ion: [facility] S ource: [employer] Inspector andrew: N Practi ce ID: 0001 Devin lable Time: 10:30:00 AM Maribell huggins [facility] 11:51:53 Vaginola bial hernia Completed 201711/22/2020 Other specifie d noninfla mmatory disorder s of vagina;R ecorded Elsewher e: No Locat ion: [facility] S ource: [employer] Inspector andrew: N Practi ce ID: 0001 Devin lable Time: 10:30:00 AM Maribell huggins [facility] 11:52:16 Problem Notes None recorded. Procedures Surgical History Date Name Laterality Status Provider Name and Address Organization Details Recorded Time 021 Endometrial Ablation with Hysteroscopy completed Chapito Peterson MD [address], [place], [address], [facility] 07/07/2021 15:13:53 021 Endometrial Ablation completed Livier Ang [facility] 07/14/2021 11:13:29 021 Hysteroscopy completed Maribell Edmondson [facility] 11/22/2020 11:57:48 019 Date of Last Pap Smear completed Maribell Edmondson [facility] 06/28/2020 11:54:56 018 Cholecystectomy completed [facility] 07/05/2020 11:12:05 003 Laparoscopy completed [facility] 07/05/2020 11:11:52 002 section completed [facility] 07/05/2020 11:10:38 Imaging Results None recorded. Procedure Notes None recorded. Medical Equipment None Reported. Allergies No known drug allergies Medications Name Sig Start Date Stop Date Status Note LastModified by Organization Details LastModified Time Mirena 21 mcg/24 hr (up to 8 years) 52 mg intrauter ine device insert 1 kit by vaginal route every 1 for 5 months 04/01 completed Prescrib ed Lettyher e: No Locat ion: [facility] M odify By: grecia cai DateTime : 11/04/19 09:30:00 AM Not Available Not Available Not Available betametha sone valerate 0.1 % topical ointment APPLY TOPICALL Y TO AFFECTED AREAS ON ARMS AND NECK TWICE DAILY AVOID APPLICAT ION ON FACE 11/22 completed Not Available Not Available Not Available prednison e 10 mg tablet PLEASE SEE ATTACHED FOR DETAILED DIRECTIO NS 07/12 completed Not Available Not Available Not Available albuterol sulfate 2.5 mg/3 mL (0.083 %) solution for nebulizat ion INHALE 1 VIAL 3 TIMES A DAY BY NEBULIZA TION ROUTE DIRECTED FOR 30 DAYS. 06/17 completed Not Available Not Available Not Available triamcino lone acetonide 0.5 % topical cream 02/13 completed Not Available Not Available Not Available ibuprofen 800 mg tablet TAKE 1 TABLET BY MOUTH EVERY DAY NEEDED 12/18 completed Not Available Not Available Not Available hydrocodo ne 5 mg-acetam inophen 325 mg tablet 11/22 completed Not Available Not Available Not Available fluticaso ne propionat e 0.05 % topical cream RUB IN GENTLY ONE APPLICAT ION TOPICALL Y TO AFFECTED AREA DAILY 11/22 completed Not Available Not Available Not Available hydrocort isone 1 % topical ointment APPLY TO AFFECTED AREA(S) ON THE FACE TWICE DAILY NEEDED active Not Available Not Available No t Available Keflex 500 mg capsule take 1 capsule by oral route every 12 hours for 3 days 11/22 completed Prescrib ed Elsewher e: No Locat ion: [facility] odify By: abdirahman bailey DateTime : 06/17/20 11:34:40 AM Not Available Not Available Not Available ondansetr on HCl 8 mg tablet Take 1 tablet 2 hours before the procedur e. 07/14 completed Not Available Not Available Not Available fluconazo le 200 mg tablet TAKE 1 TABLET BY MOUTH EVERY DAY 06/28 completed Not Available Not Available Not Available prednison e 20 mg tablet 02/13 completed Not Available Not Available Not Available Diflucan 150 mg tablet take 1 tablet by oral route once 11/22 completed Prescrib ed Elsewher e: No Locat ion: [facility] odify By: sarita carter DateTime : 06/23/20 09:49:09 AM Not Available Not Available Not Available metronida zole 500 mg tablet Take 1 tablet every 12 hours by oral route for 7 days. 12/18 completed Not Available Not Available Not Available phentermi ne 37.5 mg tablet 02/13 completed Not Available Not Available Not Available ciproflox acin 500 mg tablet TAKE 1 TABLET BY MOUTH EVERY 12 HOURS 11/22 completed Not Available Not Available Not Available hydrocodo ne 10 mg-acetam inophen 325 mg tablet Take 1 tablet 2 hours before the procedur e. 07/14 completed Not Available Not Available Not Available triamcino lone acetonide 0.1 % topical cream APPLY CREAM EXTERNAL LY TO AFFECTED AREA TWICE DAILY FOR 7 DAYS 02/13 completed Not Available Not Available Not Available acyclovir 800 mg tablet TAKE 2 TABLETS BY MOUTH TWICE DAILY DIRECTED FOR 5 DAYS 06/28 completed Not Available Not Available Not Available erythromy jacqueline 250 mg tablet TAKE 2 TABLETS BY MOUTH EVERY DAY DIRECTED 06/28 completed Not Available Not Available Not Available alprazola m 0.5 mg tablet Take 1 tablet 2 hours before the procedur e. 07/14 completed Not Available Not Available Not Available potassium 99 mg tablet 02/13 completed Prescrib ed Elsewher e: Yes [facility] By: grecia Gipson r DateTime : 04/08/20 18 10:30:00 AM Not Available Not Available Not Available tacrolimu s 0.1 % topical ointment APPLY TOPICALL Y TO THE AFFECTED AREA(S) ON FACE ARMS AND NECK TWICE DAILY 11/22 completed Not Available Not Available Not Available triamcino lone acetonide 0.1 % topical ointment APPLY TOPICALL Y TO THE AFFECTED AREA(S) ON ARMS AND NECK TWICE DAILY AVOID APPLICAT ION ON FACE 11/22 completed Not Available Not Available Not Available losartan 25 mg tablet take 1 tablet by oral route every day 11/22 completed Prescrib ed Elsewher e: Yes Loca tion: [facility] odify By: grecia Gipson r DateTime : 04/08/20 18 10:30:00 AM Not Available Not Available Not Available progester one micronize d 200 mg capsule Take 1 capsule every day by oral route. 12/18 completed Not Available Not Available Not Available hydrochlo rothiazid e 12.5 mg capsule TAKE 1 CAPSULE BY MOUTH EVERY DAY active Not Available Not Available No t Available hydrocort isone 2.5 % topical cream APPLY A THIN LAYER TOPICALL Y TO FACE TWICE DAILY 07/12 completed Not Available Not Available Not Available hydrochlo rothiazid e 25 mg tablet TAKE 1 TABLET EVERY DAY BY ORAL ROUTE DIRECTED FOR 30 DAYS. 06/17 completed Not Available Not Available Not Available methylpre dnisolone 4 mg tablets in a dose pack TAKE 6 TABLETS ON DAY 1 DIRECTED ON PACKAGE AND DECREASE BY 1 TAB EACH DAY FOR A TOTAL OF 6 DAYS 02/13 completed Not Available Not Available Not Available albuterol sulfate HFA 90 mcg/actua tion aerosol inhaler INHALE 2 PUFFS BY MOUTH EVERY 4 HOURS FOR RESCUE ONLY (MUST LAST 30 DAYS) 06/17 completed Not Available Not Available Not Available betametha sone dipropion ate 0.05 % topical ointment APPLY RASH TOPICALL Y UP TO TWICE DAILY FOR 30 DAYS 02/13 completed Not Available Not Available Not Available losartan 100 mg tablet TAKE 1 TABLET BY MOUTH EVERY DAY 02/13 completed Not Available Not Available Not Available fluticaso ne propionat e 50 mcg/actua tion nasal spray,yaron pension USE 1 SPRAY(S) IN EACH NOSTRIL TWICE DAILY FOR RHINOSIN USITIS 02/13 completed Not Available Not Available Not Available loratadin e 10 mg tablet TAKE 1 TABLET BY MOUTH ONCE DAILY FOR 60 DAYS FOR RHINOSIN USITIS 02/13 completed Not Available Not Available Not Available amoxicill in 500 mg-potass ium clavulana te 125 mg tablet TAKE 1 TABLET BY MOUTH ONCE EVERY 12 HOURS AFTER MEALS FOR 7 DAYS 12/18 completed Not Available Not Available Not Available aloe vera 12/18 completed Not Available Not Available Not Available Green Tea 12/18 completed Not Available Not Available Not Available Vitamins and Minerals active Not Available Not Available Not Available Symbicort 80 mcg-4.5 mcg/actua tion HFA aerosol inhaler inhale 2 puff by inhalati on route 2 times every day in the morning and evening 04/08 completed Prescrib ed Elsewher e: Yes Loca tion: [facility] odify By: grecia cai DateTime : 01/17/20 08:30:00 AM Not Available Not Available Not Available Probiotic 12/18 completed Not Available Not Available Not Available folate 5-iron-C- Ca thre-ps dha-Bs 14 8.73 mg-1.5 mg iron-40 mg capsule Take by oral route. 12/18 completed Not Available Not Available Not Available ID NOW COVID-19 Test Kit TEST DIRECTED 06/17 completed Not Available Not Available Not Available omega 3 360 mg-dha 108 mg-epa 180 mg-fish oil 1,200 mg capsule Take by oral route. 12/18 completed Not Available Not Available Not Available Vitals Date Recorded Body height Body mass index (BMI) Body weight Systolic blood pressure Diastolic blood pressure Systolic blood pressure Diastolic blood pressure Provider Name and Address Organization Details Last Updated DateTime 168.91 cm 46.9 kg/m2 439557. 75 g 139 mm[Hg] 94 mm[Hg] 140 mm[Hg] 91 mm[Hg] [facility] 1 11:32:21 Date Recorded Body height Body mass index (BMI) Body weight Systolic blood pressure Diastolic blood pressure Systolic blood pressure Diastolic blood pressure Provider Name and Address Organization Details Last Updated DateTime 1 168.91 cm 46.1 kg/m2 706345. 79 g 150 mm[Hg] 109 mm[Hg] 140 mm[Hg] 82 mm[Hg] Amadariley Sharmadarian [facility] 1 09:34:40 Date Recorded Body height Body mass index (BMI) Body weight Systolic blood pressure Diastolic blood pressure Systolic blood pressure Diastolic blood pressure Provider Name and Address Organization Details Last Updated DateTime 1 168.91 cm 46.3 kg/m2 730870. 38 g 154 mm[Hg] 113 mm[Hg] 146 mm[Hg] 92 mm[Hg] [facility] 1 12:11:46 Date Recorded Body height Body mass index (BMI) Body weight Systolic blood pressure Diastolic blood pressure Systolic blood pressure Diastolic blood pressure Provider Name and Address Organization Details Last Updated DateTime 1 168.91 cm 46.6 kg/m2 067309. 56 g 152 mm[Hg] 110 mm[Hg] 145 mm[Hg] 96 mm[Hg] [facility] 1 11:11:52 Date Recorded Body height Body mass index (BMI) Body weight Systolic blood pressure Diastolic blood pressure Systolic blood pressure Diastolic blood pressure Systolic blood pressure Diastolic blood pressure Provider Name and Address Organization Details Last Updated DateTime 2 168.91 cm 47.2 kg/m2 663777. 93 g 145 mm[Hg] 105 mm[Hg] 165 mm[Hg] 115 mm[Hg] 140 mm[Hg] 100 mm[Hg] [facility] 2 11:29:37 Social History Question Answer Notes LastModified by Organizat ion Details LastModified Time Tobacco Smoking Status Never Smoker Maribell huggins, [facility] 07/05/2020 11:09:41 What Is Your Level Of Alcohol Consumption? Occasional [email or web address] Information not available 07/05/2020 Do You Or Have You Ever Used E-cigarettes Or Vape? Never Used Electronic Cigarettes [email or web address] Information not available 07/05/2020 What Was The Date Of Your Most Recent Tobacco Screening? 06/28/2020 [email or web address] Information not available 07/05/2020 Do You Or Have You Ever Used Smokeless Tobacco? Never Used Smokeless Tobacco [email or web address] Information not available 07/05/2020 How Much Tobacco Do You Smoke? No [email or web address] Information not available 07/05/2020 Sex: Unknown Functional Status Question Answer Note LastModified by Organizat ion Details LastModified Time What is your exercise level? Occasional Information not available 07/05/2020 Mental Status None recorded. Family History Relationship Description Onset Age of this Age Resolved Age Notes LastModified by Organization Details LastModified Time Paternal Aunt Diabetes mellitus Not available 07/05 11:09:28 Maternal Aunt Diabetes mellitus [email or web address] Not available 07/05 11:09:28 Notes:\ Medical History Condition Response Other Y Hypertension Y GI Problems Gynecological History Statement/Question Response Date of Last Pap Smear 06/12/2019 Current Control Method Tubal Ligat ion Desired Control Method Ablation Date of LMP 06/03/2020 Obstetrics History GPAL:G 2 P 0 1 1 1 Type Value Premature 1 Living 1 Ectopics 1 Total 2 Past Encounters Encounter ID Performer Location Encounter Start Date Encounter Closed Date Diagnosis/Indication Diagnosis SNOMED-CT Code Diagnosis ICD10 Code Diagnosis Note [id number] Chapito Peterson MD [place] [address] [address] 06/28/2020 10:57:27 06/28/2020 12:40:29 Pain in pelvis 14805261 R10.2 This patient is a 35-year-ol d female with some suprapubic /pelvic pain. She has had pelvic pain previously . That was attributab le to a malpositio leonard IUD. She has an IUD at this time. She also has urinary symptoms. We agreed to obtain a pelvic ultrasound and to treat her for urinary tract infection. She is blood or leukocytes in her urine. She return after pelvic ultrasound to discuss treatment options. Urinary tr act infectious disease 41614734 N39.0 [id number] Akua Calzada [place] [address] [address] 07/12/2020 09:15:38 07/12/2020 10:08:04 Pain in pelvis 44529461 R10.2 This patient is a 35-year-ol d female with some suprapubic /pelvic pain. She has had pelvic pain previously . That was attributab le to a malpositio leonard IUD. She has an IUD at this time. She also has urinary symptoms. We agreed to obtain a pelvic ultrasound and to treat her for urinary tract infection. She is blood or leukocytes in her urine. She return after pelvic ultrasound to discuss treatment options. [id number] Chapito Peterson MD [place] [address] [address] 07/12/2020 09:17:43 07/12/2020 10:36:49 Menorrhagia 886412020 N92.0 Dysmenorrhea 738245164 N 94.6 Pain in pelvis 36414331 R10.2 Malpositio n of intrauterine contraceptive device [id number] 6437596 T83.32XA Cyst of ovary 48354994 N 83.209 this patient is a 35-year-ol d female presents for follow-up on ultrasound . She has pelvic pain. The ultrasound revealed an imbedded IUD. It is into the myometrium and possibly through theendomet rium. She has a 6 cm ovarian cyst as well. The patient has severe menorrhagi a. Even with the IUD she has accidents. She has events where she gets blood on her bedding and clothing. It affects her quality of life and activities of daily living. After the IUD removed this is likely to get worse. She noticed some improvemen t with the IUD. But after some time the bleeding returned. We spent 15 minutes face-to-fa ce. More than 50% was counseling . She is going to return in a month. She is not ready to deal with these things at this time. But she has a imbedded IUD, severe menorrhagi a, and a large ovarian cyst. She was given precaution s on torsion. [id number] Akua Calzada [place] [address] [address] 09/29/2020 11:13:40 09/29/2020 12:06:21 Cyst of right ovary [id number] 5638655 N83.291 T83.39XA [id number] Chapito Peterson MD [place] [address] [address] 09/29/2020 11:15:41 09/29/2020 13:08:20 Menorrhagia 431083779 N92.0 Dyspareunia 40030094 N94 .10 Pain in pelvis 61262198 R10.[address] atoma of ovary 240860756 D27.9 Female sterilization 608 02687 Z30.2 Malpositio n of intrauterine contraceptive device 3641138869 5279439 T83.32XA This patient is 35-year-ol d female withmalpos itionedIUD , 6 cm dermoid, and unwanted fertility. We discussed treatment options today. She has had multiple surgeries. She has had a intra-abdo teri infection from a bowel injury during a surgery. After discussing approaches to removing a dermoid. We agreed to attempt a laparoscop ic right oophorecto my , along withabilat eralsalpin gectomy. also we will need to perform hysterosco pic IUD removal. She has an embedded IUD. We discussed the risk of laparotomy during this case. We discussed the risk of bowel injury. We Proceedwit h scheduling the surgery. the patient has severe give can not menorrhagi a and dyspareuni a. We will look to the IUD removal to help with bleeding. [id number] Chapito Peterson MD [place] [address] [address] 11/08/2020 11:01:12 11/08/2020 22:50:44 Malposition of intrauterine contraceptive device [id number] 0436497 T83.32XA Female sterilization [address] atoma of ovary 275272218 D27.9 this patient is a 35-year-ol d female with a right ovarian teratoma, malpositio leonard IUD, unwanted fertility. We have agreed to perform hysterosco pic removal of IUD, laparoscop ic right oophorecto my, laparoscop ic bilateral salpingect michael. The patient understand s the risks, benefits, and alternativ es of these procedures . She has completed the informed consent process and is ready to proceed. [id number] Chapito Peterson MD [place] [address],[facility] [place] [address] 11/16/2020 10:59:00 11/16/2020 11:09:59 [id number] Chapito Peterson MD [place] [address],[facility] [place] [address] 11/22/2020 11:20:36 11/22/2020 12:22:06 Postoperative care 777094509 Z48.89 This patient is a 35-year-ol d female who presents for postop follow-up. She is 1 week postop from a laparoscop ic right oophorecto my and bilateral salpingect michael with adhesiolys is. There was extensive adhesiolys is with this patient. She had a previous peritoniti s with ileostomy. Procedure went well. She has no complaints . She has little bit of tenderness but is not using any pain medication . She will follow up as needed. She has a well-woman exam coming up soon. Incisions are clean dry and intact. [id number] Chapito Peterson MD [place] [address] [address] 02/13/2021 11:06:34 02/13/2021 12:07:31 Gynecologic examination 79971054 Z01.419 This patient is here for her annual exam. A thorough history was taken. A physical exam was performed. Age appropriat e routine health screening was ordered, performed, and discussed. Recommende d testing was ordered. She was asked to follow up in one year. She will be informed of any test results. Cholestero l - [ done ] Pap - today [id number] Chapito Peterson MD [place] [address] [address] 06/17/2021 09:19:56 06/17/2021 10:08:45 Menorrhagia 727147925 N92.0 this patient is a 36-year-ol d female with severe menorrhagi a. We have agreed to perform endometria l ablation the office. She understand s the risks, benefits, and alternativ es. We agreed to treat her current bleeding with 200 mg of Prometrium . She will take that every day until the procedure. [id number] Chapito Peterson MD [place] [address] [address] 07/07/2021 11:47:46 07/07/2021 15:24:51 Screening procedure 80391789 Z13.9 Menorrhagia 439033378 N9 2.0 ablation was completed. She tolerated the procedure well. [id number] Chapito Peterson MD [place] [address],[place] [address] 07/14/2021 11:03:12 07/14/2021 12:06:24 Menorrhagia 175702616 N92.0 This patient is a 28-year-ol d female presents for follow-up on menorrhagi a. One week ago she had an endometria l ablation. She is recovering normally. She has no complaints . She has watery vaginal discharge that has no odor. She denies any nausea, vomiting, fever, chills. She has normal bowel movements. Will follow-up as needed. [id number] Chapito Peterson MD [place] [address] [address] 12/18/2021 11:00:04 12/18/2021 14:59:39 Polycystic ovary syndrome 388273337 E28.2 this patient is a 36-year-ol d female presents for skin concerns. She reports worsening acne over the last 6 months. She also reports some facial hair. Patient is status post endometria l ablation has no bleeding essentiall y. Patient like to evaluate her hormones. She feels that it is hormonally related. We agreed to check hormones. We will inform her of the results. Health Concerns Section Related Observation LastModified by Organization Detai ls LastModified Time None Recorded Concern Status LastModified by Organization Details LastModified Time None Recorded Advance Directives Directive None Recorded Payers Encounter Date Sequence Insurance Name Policy Number Policy Guzman Covered Member ID Guzman Member ID Guarantor Name 02/13/2021 1 [place] [id number] Joy [id number] 02/13/2021 2 [place] [facility] Kerline Joy [id number] 06/17/2021 1 [place] [id number] Joy [id number] 06/17/2021 2 [place] [facility] Kerline Joy [id number] 07/07/2021 1 [place] [id number] Joy [id number] 07/07/2021 2 [place] [facility] Kerline Joy [id number] 07/14/2021 1 [place] [id number] Joy [id number] 07/14/2021 2 [place] [facility] Kerline Joy [id number] 12/18/2021 1 [place] [id number] Joy [id number] 12/18/2021 2 [place] [facility] [id number] Notes Date Note Type Note Provider Name and Address Organization Details Recorded Time 02/13/2021 text/html Annual GYNReport ed bypatient.History: no gynecologic complaints Menstrual cycle:Normal menses Urinary symptoms:No hematuria; No incontinence Vulva:No genital lesion Breast:No breast pain; No breast lump; No nipple discharge Sexual complaints:No sexual complaints; No pain during intercourse; Normal libido Psychological symptoms:No depression; No anxiety Preventive measures:Encourage self breast examination; Encourage regular exercise Chapito Peterson MD [address], [place], [address], [facility] 02/13/2021 12:06:13 06/17/2021 text/html This patient is a 36-year-old female presents for heavy vaginal bleeding. She has longstanding very heavy bleeding. Her menses are regular. However, they require double protection. Patient has accidents, getting blood on her bedding and clothing. Is affected work. She changes a pad or tampon every hour. She leaks blood around the pad and tampon. This bleeding has a profound impact on her quality of life and her activities of daily living. patient has marked obesity, class 3, she has limited medical treatment options. We talked about her medical treatment options in some detail. We talked about procedures . I described procedures to the patient. We agreed to schedule hysteroscopy endometrial ablation. I described the procedure to the patient in detail. We reviewed a video of the procedure. Chapito Peterson MD [address], [place], [address], [facility] 06/17/2021 10:04:19 07/07/2021 text/html This patient is a 36-year-old female presents for endometrial ablation. Chapito Peterson MD [address], [place], [address], [facility] 07/07/2021 15:16:33 07/14/2021 text/html This patient is a 28-year-old female presents for follow-up on menorrhagia. One week ago she had an endometrial ablation. She is recovering normally. She has no complaints. She has watery vaginal discharge that has no odor. She denies any nausea, vomiting, fever, chills. She has normal bowel movements. Will follow-up as needed. Chapito Peterson MD [address], [place], [address], [facility] 07/14/2021 11:48:50 12/18/2021 text/html this patient is a 36-year-old female presents for skin concerns. She reports worsening acne over the last 6 months. She also reports some facial hair. Patient is status post endometrial ablation has no bleeding essentially. Patient like to evaluate her hormones. She feels that it is hormonally related. We agreed to check hormones. We will inform her of the results. Chapito Peterson MD [address], [place], [address], [facility] 12/18/2021 14:57:16 OBGyn Episode Ob Episode Information Episode Created Date Number of Fetuses Patient Bloodtype Patient rh Status Prepregnancy Weight lbs Domestic Partner Domestic Partner Phone Father Name Franchise Consultant Status 07/05/20 20 1 CLOSED Fetus Data First Name Last Name Admitted to NICU Weight (g) Sex Living Outcome Pediatric Complications Fetus ID Race Codes Race Delivery Type 1275.50 0704 F Prematur e 6508 Primary Harry Calculation Initial Harry Date Initial Exam Date Initial Exam Provider Initial Ultrasound Date Last Menstrual Period Date Ultra Sound Weeks Gestation 0 Eighteen To Twenty Week Harry Update Ultra Sound Date Fundal Height At Umbil Quickening Date Ultra Sound Latest Weeks Gestation Final Harry Confirmed By Final Harry Confirmed Date Final Harry Date Ultra Sound Latest Days Gestation 0 0 Menstrual History Last Menstrual Date Menses Monthly On Bcp Conception Prior Menses Frequency Hcg Plus Date Menarche Onset Age Delivery Information Delivery Date Delivery Type Labor Anesthesia Weeks Gestation Incision Type Labor Labor Length Hrs Delivered By Post Complications Tubal Sterilization Discharge Date Comments 2 true Discharge Information Feeding Method Contraceptive Method Maternal HG B and HCT Levels Ob Episode Information Episode Created Date Number of Fetuses Patient Bloodtype Patient rh Status Prepregnancy Weight lbs Domestic Partner Domestic Partner Phone Father Name Franchise Consultant Status 07/05/20 20 1 CLOSED Fetus Data First Name Last Name Admitted to NICU Weight (g) Sex Living Outcome Pediatric Complications Fetus ID Race Codes Race Delivery Type Ectopic 6509 Harry Calculation Initial Harry Date Initial Exam Date Initial Exam Provider Initial Ultrasound Date Last Menstrual Period Date Ultra Sound Weeks Gestation 0 Eighteen To Twenty Week Harry Update Ultra Sound Date Fundal Height At Umbil Quickening Date Ultra Sound Latest Weeks Gestation Final Harry Confirmed By Final Harry Confirmed Date Final Harry Date Ultra Sound Latest Days Gestation 0 0 Menstrual History Last Menstrual Date Menses Monthly On Bcp Conception Prior Menses Frequency Hcg Plus Date Menarche Onset Age Delivery Information Delivery Date Delivery Type Labor Anesthesia Weeks Gestation Incision Type Labor Labor Length Hrs Delivered By Post Complications Tubal Sterilization Discharge Date Comments 2012 ectopic Discharge Information Feeding Method Contraceptive Method Maternal HG B and HCT Levels
--- OUTSIDE RECORDS SUMMARY | 2024-09-20 10:28 | XMS_ITS | CONTINUITY OF CARE DOCUMENT ---
Author Name angela miller Address Unknown Organization [facility] Address [address] [place] [address] Phone [phone] Care Team Providers Care Security Officers And Guards Name Role Phone Gagandeep Shore MD Unavailable JOSY BEAULIEU MD Unavailable LUIS M RAYMUNDO MD Unavailable [phone] INSURANCE PROVIDERS Payer name Policy type / Coverage type [place] red green party ID [facility] [id number]
--- OUTSIDE RECORDS SUMMARY | 2024-09-20 10:28 | XMS_ITS | Clinical Summary ---
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
== END 2024-09-20 10:24 | disposition home or self-care (01) ==
PROVIDERS: PCP Emergency Medicine; Visit Provider Emergency Medicine
DX: M25.532 Pain in left wrist (principal)
CPT/HCPCS: 73100

== ENCOUNTER 2024-10-05 12:00 | Outpatient (CLI) | payer BC, SELFPAY ==
[2024-10-05 12:32] LABS: Basophils Percent Auto 0.2 % (0.2-1.2); Eosinophils Absolute Auto 0.1 K/mm3 (0-0.3); Eosinophils Percent Auto 1.2 % (0-4.4); Hematocrit 35.8 % (37.0-47.0); Hemoglobin 11.8 g/dL (12.0-15.0); Immature Granulocyte Absolute 0.07 K/mm3 (0.00-0.031); Immature Granulocyte Percent A 0.6 % (0-0.5); Lymphocytes Absolute Auto 1.14 K/mm3 (0.9-3.2); Lymphocytes Percent Auto 9.4 % (18.3-44.2); Mean Corpuscular Hemoglobin 27.2 pg (26-34); Mean Corpuscular Volume 82.5 fl (80-100); Mean Platelet Volume 8.9 fl (7.4-10.4); Monocytes Absolute Auto 0.7 K/mm3 (0.1-0.6); Monocytes Percent Auto 5.5 % (2.6-8.5); Neutrophils Absolute Auto 10.1 K/mm3 (1.3-6.7); Neutrophils Percent Auto 83.1 % (45.5-73.1); Platelet Count Result 293 k/mm3 (150-375); Red Blood Count 4.34 M/mm3 (4.2-5.4); Red Cell Distribution Width 13.1 % (11.5-14.5); White Blood Count 12.1 K/mm3 (4.5-10.0)
[2024-10-05 12:47] LABS: Rheumatoid Factor < 12.0 IU/ML (<12)
--- OUTSIDE RECORDS SUMMARY | 2024-10-05 13:57 | XMS_ITS | Referral Summary ---
Author Organization [facility] [employer] Address [address] [place] [address] Care Team Providers Care Dress Draper Name Role Phone Joanna Yang MD Primary Care Provider [phone] Source Comments [facility] [employer],non-owned Affiliates and Associated Physician Practices is amultiple site organization consisting of ambulatory clinics and hospital sitesin [place], [place], [place] and [place]. This disclosure is being madepursuant to the Care Everywhere program and may not contain all information available regarding this patient. Last updated 18.[facility] [employer] Allergies Active Allergy Reactions Criticality Noted Date [...] of Treatment Not on file Care Teams Dress Draper Relationship Specialty Start Date End Date Joanna Yang MD [address] [place] [address] PCP - General 05/08/18
--- OUTSIDE RECORDS SUMMARY | 2024-10-05 13:57 | XMS_ITS | CONTINUITY OF CARE DOCUMENT ---
Author Name angela miller Address Unknown Organization [facility] Address [address] [place] [address] Phone [phone] Care Team Providers Care Swine Nutritionist Name Role Phone Gagandeep Shore MD Unavailable [phone] JOSY BEAULIEU MD Unavailable [phone] LUIS M RAYMUNDO MD Unavailable [phone] INSURANCE PROVIDERS Payer name Policy type / Coverage type [place] red alliance party ID [facility] [id number]
--- OUTSIDE RECORDS SUMMARY | 2024-10-05 13:57 | XMS_ITS | Clinical Summary ---
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
--- OUTSIDE RECORDS SUMMARY | 2024-10-05 13:57 | XMS_ITS | Clinical Summary ---
Author Organization [facility] Address [address] [place] [address] Care Team Providers Care Glue Spreader Name Role Phone Joanna Yang MD Primary Care Provider [phone] Source Comments [facility] [employer],non-owned Affiliates and Associated Physician Practices is amultiple site organization consisting of ambulatory clinics and hospital sitesin [place], [place], [place] and [place]. This disclosure is being madepursuant to the Care Everywhere program and may not contain all information available regarding this patient. Last updated 18.[facility] Allergies Active Allergy Reactions Criticality Noted Date [...] age to complete this topic Care Teams Glue Spreader Relationship Specialty Start Date End Date Joanna Yang MD [address] [place] [address] PCP - General 05/08/18
--- OUTSIDE RECORDS SUMMARY | 2024-10-05 13:57 | XMS_ITS | Patient Health Summary ---
Author Organization [facility] [employer] Address [address] [place] [address] Care Team Providers Care Wedger Name Role Phone Joanna Yang MD Primary Care Provider [phone] Note from [facility],non-owned Affiliates and Associated Physician Practices is amultiple site organization consisting of ambulatory clinics and hospital sitesin [place], [place] and [place]. This disclosure is being madepursuant to the Care Everywhere program and may not contain all information available regarding this patient. Last updated 18.[facility] Allergies * Losartan(Itching) -Medium Criticality Medications * [...] Sexual Orientation Not on file Procedures * VT PUNCH BX SKIN SINGLE LESION(Performed 12/14/2020) Performed for Rash and nonspecific skin eruption * DERMATOPATHOLOGY(Performed 12/14/2020) Performed for Rash and nonspecific skin eruption * GROSS + MICRO EXAM(Performed 11/12/2001) Results * VT PUNCH BX SKIN SINGLE LESION (12/14/2020 9:38 [...] AM CDT) Case Report Dermatopathology Report Case: [id number] Authorizing Provider: Sheryl Shepherd MD Collected: 12/14/2020 12:00 AM Ordering Location: [facility] Received: 12/14/2020 11:21 AM Dermatology Pathologist: [...] specimen consists of a punch biopsy measuring [id number], bisected. Jar 0. 4:39 PM CDT DERMATOPATHOLOGY [...] characteristic determined by the Dermatopathology Laboratory at [facility], directed by Dr. Randall Lechuga. These tests need not be, and therefore are not, approved by the [place] Food and Drug Administration. The tests are used for clinical purposes. Billing Codes Specimen Charges Stain Charges 37341 1 76508 55789 1 1 1 4:39 PM CDT DERMATOPATHOLOGY LABORATORY Embedded Images 4:39 PM CDT DERMATOPATHOLOGY LABORATORY Pathology/Cytolog y TISSUE SPECIMEN FROM SKIN / Unknown 12/14/2020 12/14/2020 11:21 AM CDT Sheryl Shepherd MD LAB - PATHOLOGY/CYTO LOGY ORDERABLES DERMATOPATHOLOGY LABORATORY [facility] - Department of Dermatology [address], [address] [phone] * GROSS + MICRO EXAM (11/12/2001 9:38 [...] cord and membranes, B- surface, C-maternal surface JEWEL INSERTER/ [facility] Microscopic Exam Microscopic examination of [...] D. 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 Aesthetician bk Pathologist Geraldine Summers M.D. [place]. 11/13/2001 1352 <1> CPT code 99544 MISCELLANEOUS SAMPLES / Unknown 11/12/2001 9:38 AM CDT 11/12/2001 9:38 AM CDT Historical Provider LAB - PATHOLOGY/C YTOLOGY ORDERABLES Care Teams Wedger Relationship Specialty Start Date End Date Joanna Yang MD [address] [place] [address] PCP - General 05/08/18
--- OUTSIDE RECORDS SUMMARY | 2024-10-05 13:57 | XMS_ITS | Clinical Summary ---
[facility] Address [address] [place] [address] Care Team Providers Care [employer] Name Role Phone Roc Hester MD Primary [...] 06/11/2019 Overview (06/22/2024): Hypertension;Recorded Elsewhere: No Location: [facility] Source: EHR Chronic: N Practice ID: [id number] Billable Time: 01:00:00 PM Contraceptive management 02/20/2019 Overview (06/22/2024): Encounter for routine checking of intrauterine contracep dev;Practice ID: [id number] Syphilis contact 04/08/2018 Overview (06/22/2024): Encntr screen for infections w sexl mode of transmiss;Recorded Elsewhere: No Location: [facility] Source: EHR Chronic: N Practice ID: [id number] Billable Time: 10:30:00 AM Obesity with body mass index 30 or greater 04/08 Overview (06/22/2024): Body mass index (BMI) 50-59.9 , adult;Recorded Elsewhere: No Location: [facility] Source: EHR Chronic: N Practice ID: [id number] [...] staff should administer the PHQ-9) 0 06/22/2024 PHQ-9 Answer Date Recorded PHQ-9 Total Score 0 06/22/2024 Comments Unknown Sex and Gender Information Value Date Recorded Sex Assigned at Not on file Legal Sex Female 8:31 AM CDT Gender Identity Not on file Sexual Orientation Not on file Obstetrics History Last Filed Vital Signs Vital Sign Reading Time Taken Comments Blood Pressure 149/103 06/22/2024 11:41 AM CONFIGURATION TECHNICIAN Pulse 90 06/22/2024 11:41 AM CONFIGURATION TECHNICIAN Temperature 36.3 C (97.3 F) 06/22/2024 11:41 AM CONFIGURATION TECHNICIAN Respiratory Rate 18 06/22/2024 11:4 1 AM CONFIGURATION TECHNICIAN Oxygen Saturation 96% 10/24/2023 10: 41 AM CDT Inhaled Oxygen Concentration - - Weight 132.4 kg (291 lb 12.8 oz) 2023 11:41 AM CONFIGURATION TECHNICIAN Height 170.2 cm (5' 7 ) 06/22/2024 11:4 1 AM CONFIGURATION TECHNICIAN Body Mass Index 45.7 06/22/2024 11:41 AM CONFIGURATION TECHNICIAN Plan of Treatment Health Maintenance Due Date [...] patient's age to complete this topic Insurance [employer] ACCESS CHOICE [facility] Address: [facility] [address] [place] [address] BLUE ACC CHOICE OOS IDPA [facility] ACCESS CHOICE Care Teams [employer] Relationship Specialty Start Date End Date Roc Hester MD [address] [place] [address] PCP - General Emergency Medicine 06/22/24
--- OUTSIDE RECORDS SUMMARY | 2024-10-05 13:57 | XMS_ITS | Referral Summary ---
[facility] Address [address] [place] [address] Care Team Providers Care Manager Of Program Name Role Phone Roc Hester MD Primary [...] 06/11/2019 Overview (06/22/2024): Hypertension;Recorded Elsewhere: No Location: [facility] Source: EHR Chronic: N Practice ID: [id number] Billable Time: 01:00:00 PM Contraceptive management 02/20/2019 Overview (06/22/2024): Encounter for routine checking of intrauterine contracep dev;Practice ID: [id number] Syphilis contact 04/08/2018 Overview (06/22/2024): Encntr screen for infections w sexl mode of transmiss;Recorded Elsewhere: No Location: [facility] Source: EHR Chronic: N Practice ID: [id number] Billable Time: 10:30:00 AM Obesity with body mass index 30 or greater 04/08 Overview (06/22/2024): Body mass index (BMI) 50-59.9 , adult;Recorded Elsewhere: No Location: [facility] Source: EHR Chronic: N Practice ID: [...] Comments Blood Pressure 149/103 06/22/2024 11:41 AM COURTROOM DEPUTY Pulse 90 06/22/2024 11:41 AM COURTROOM DEPUTY Temperature 36.3 C (97.3 F) 06/22/2024 11:41 AM COURTROOM DEPUTY Respiratory Rate 18 06/22/2024 11:4 1 AM COURTROOM DEPUTY Oxygen Saturation 96% 10/24/2023 10: 41 AM CDT Inhaled Oxygen Concentration - - Weight 132.4 kg (291 lb 12.8 oz) 2023 11:41 AM COURTROOM DEPUTY Height 170.2 cm (5' 7 ) 06/22/2024 11:4 1 AM COURTROOM DEPUTY Body Mass Index 45.7 06/22/2024 11:41 AM COURTROOM DEPUTY Plan of Treatment Not on file Insurance ANTHEM ACCESS CHOICE BLUE ACC CHOICE OOS IDPA ANTH ACCESS CHOICE Care Teams Manager Of Program Relationship Specialty Start Date End Date Roc Hester MD [address] [place] [address] PCP - General Emergency Medicine 06/22/24
--- OUTSIDE RECORDS SUMMARY | 2024-10-05 13:58 | XMS_ITS | Continuity of Care Document ---
Author Organization [facility] Address [address] [facility] [address] [place] [address] Phone Care Team Providers Care Dust Control Engineer Name Role Phone Marce Menendez Unavailable Unavailable Advance Directives Directive Yes / No Effective Date File Name No Information Encounters Encounter Description Practice Location Reason(s) For Visit Diagnoses Date Provider Providers Copied on Encounter [facility], [address], [place], [place], [id number], [place] tel:[phone] [facility] No Information 4[address] Gemma Zheng. [address] , [address], [place], [address], [place]. tel:[phone] Family History Family Member Type Diagnosis Age At Onset No Information Payers Payer name Insurance type Covered republican ID Authoriza tion(s) No Information Social History [...]
--- OUTSIDE RECORDS SUMMARY | 2024-10-05 13:58 | XMS_ITS | Data Portability ---
Author Organization [facility] Address [address] [place] [address] Care Team Providers Care Armature Inspector Name Role Phone LUIS M RAYMUNDO Primary [...] recorded. Lab dhea-sulfat e, serum 2021 022 [facility] (Lab), [address], [place], [address], 14:56:58 estradiol, serum 2021 022 [facility] (Lab), [address], [place], [address], 14:56:58 FSH (follicle-s timulating hormone), serum 2021 022 [facility] (Lab), [address] [place], [address], 14:57:00 HbA1c (hemoglobin A1c), blood 2021 022 [facility] (Lab), [address] [place], [address], 14:57:01 lh (luteinizin g hormone), serum 2021 [facility] (Lab), [address] [facility], [place], [address], 14:56:58 progesteron e, serum 2021 [facility] (Lab), [address] [place], [address], 14:56:59 prolactin, serum 2021 [facility] (Lab), [address] [place], [address], 14:56:59 shbg (sex hormone-bin ding globulin), serum 2021 [facility] (Lab), [address] [place], [address], 14:57:01 TSH, serum or plasma 2021 [facility] (Lab), [address] [place], [address], 14:57:00 testosteron e free/testos terone total, ratio, serum 2021 [facility] (Lab), [address] [place], [address], 14:57:02 test, urine 2020 021 jose Graham, [address], [place], [address], 12:22:58 Referral None recorded. Procedures None recorded. Surgeries hysteroscop y, with endometrial ablation (SURG) 2020 021 [email or web address] Chapito Peterson MD, [address], [place], [address], 18:39:30 Imaging None recorded. Medication Orders progesteron e micronized 200 mg capsule 2020 021 [email or web address] [id number], [address], [place], [address], 11:30:02 Patient TargetsNo targets recorded. Patient InstructionsNo [...] as clini ritesh terrazas nted. Not Available [facility] (Lab) [address], [place], [address], 02/15/2021 18:48:50 07/07/20 21 07/07/2021 pregn lawanda test, urine HCG negati ve Not Available [facility] [address], [place], [address], 07/07/2021 12:22:47 12/19/19 22 12/18/2021 DHEA SULFA TE DHEA-sulfate 314 ug/dL Femal e Range s Age(y ) Range (ug/d L) 10-15 34-28 0 15-20 65-36 8 20-25 148-4 07 25-35 99-34 0 35-45 61-33 7 45-55 35-25 6 55-65 19-20 5 65-75 9-246 > 75 12-15 4 Not Available [facility] (Lab) [address], [place], [address], 12/21/2021 14:56:57 12/19/19 22 12/18/2021 LH (LUTE [...] use: 7.7-5 8.5 mIU/m L Not Available [facility] (Lab) [address], [place], [address], 12/21/2021 14:56:58 12/19/19 22 12/18/2021 ESTRA DIOL estradiol 45.4 pg/mL This assay was perfo rmed using [employer] ratio n reage nts and test kits. Value s obtai leonard with other assay metho ds or kits canno t be used inter [facility] . Femal e Estra diol Range s: Folli cular phase 12.4- 233 pg/mL Ovula tion phase 41.0- 398 pg/mL Lutea l phase 22.3- 341 pg/mL Postm enopa usal< 5-138 pg/mL Healt hy Pregn ant Women 1st Trime ster1 54-32 43 pg/mL 2nd Trime ster1 561-2 1280 pg/mL 3rd Trime ster8 525-> 46124 pg/mL Not Available [facility] (Lab) [address] [place], [address], 12/21/2021 14:56:58 12/19/19 22 12/18/2021 PROGE STERO NE progesterone 0.38 NG/mL This assay was perfo rmed using [employer] ratio n reage nts and test kits. Value s obtai leonard with other assay metho ds or kits canno t be used inter [facility] . Femal e Proge stero ne Range s: Folli cular phase 0.06- 0.89 ng/mL Ovula tion phase 0.12- 12.00 ng/mL Lutea l phase 1.83- 23.90 ng/mL Postm enopa usal< 0.05- 0.13 ng/mL Healt hy Pregn ant Women 1st Trime ster1 1.0-4 4.30 2nd Trime ster2 5.40- 83.30 3rd Trime ster5 8.70- 214.0 0 Not Available [facility] (Lab) [address] [facility], [place], [address], 12/21/2021 14:56:59 12/19/19 22 12/18/2021 PROLA CTIN prolactin, total 10.90 NG/mL 4.79-2 3.30 This assay was perfo rmed using [employer] ratio n reage nts and test kits. Value s obtai leonard with other assay metho ds or kits canno t be used inter [facility] eagirard . Not Available [facility] (Lab) [address] [facility], [place], [address], 12/21/2021 14:56:59 12/19/19 22 12/18/2021 FSH FSH 10.3 mIU/m L This assay was perfo rmed using [employer] ratio n reage nts and test kits. Value s obtai leonard with other assay metho ds or kits canno t be used inter [facility] . Femal es Folli cular : 3.5-1 2.5 mIU/m L Ovula tion: 4.7-2 1.5 mIU/m L Lutea l: 1.7-7 .7 mIU/m L Postm enopa use: 25.8- 134.8 mIU/m L Not Available [facility] (Lab) [address] [facility], [place], [address], 12/21/2021 14:57:00 12/19/19 22 12/18/2021 TSH, REFLE X FREE T4 TSH 1.48 uIU/m L 0.30-5 .33 Not Available [facility] (Lab) [address] [facility], [place], [address], 12/21/2021 14:57:00 12/19/19 22 12/18/2021 HUMAN SEX HORMO NE CHRISTIANNE NG GLOBU FABY sex hormone binding globulin 54.7 nmole s/L 18.2-1 35.5 Not Available [facility] (Lab) [address] [facility], [place], [address], 12/21/2021 14:57:01 12/19/19 22 12/18/2021 HEMOG LOBIN [...] py >8.0% Actneri lee stealma Not Available [facility] (Lab) [address] [facility], [place], [address], 12/21/2021 14:57:01 12/19/19 22 12/18/2021 TESTO STERO [...] cteri stics have been deter mined by [employer]. It has not been clear ed or appro med by the FDA. This assay has been valid ated pursu ant to the CLIA regul ation s and is used for clini romario purpo ses. Not Available [facility] (Lab) [address] [facility], [place], [address], 12/21/2021 14:57:02 12/19/1912/18/2021 TESTO STERO NE, FREE( DIALY SIS) AND TOTAL (LC/M S/MS) testosterone , free 2.7 pg/mL 0.1-6. 4 This test was devel oped and its kortney tical perfo rmanc e jocelyn cteri stics have been deter mined by [employer]. It has not been clear ed or appro med by the FDA. This assay has been valid ated pursu ant to the CLIA regul ation s and is used for clini romario purpo ses. Perfo rming Organ izati on Harjinder lyman: Site ID: [id number] Name: [facility] Suzy lion Addre ss: [id number] [address] [place] [address] Direc tor: Navarro faulkner M.D. Not Available [facility] (Lab) [address], [place], [address], 12/21/2021 14:57:02 12/19/19 22 12/18/2021 urina lysis , dipst ick Leukocytes TRACE Not Available [facility] [address], [place], [address], 12/18/2021 11:34:19 12/19/1912/18/2021 urina lysis , dipst ick Blood +++ Not Available [facility] [address], [place], [address], 12/18/2021 11:34:19 Result Notes None recorded. Problems Name Problem SNOMED Code Status Onset Date Resolution Date Notes Provider Name and Address Organization Details Recorded Time Syphilis test finding [id number] Completed 201711/22/2020 Encntr screen for infectio ns w sexl mode of transmis s;Record ed Elsewher e: No Locat ion: [facility] S ource: EHR Hose Maker andrew: N Practi ce ID: [id number] Devin lable Time: 10:30:00 AM Maribell huggins [facility] 11:52:14 Infectio n screenin g Completed 201711/22/2020 Encounte r for screenin g for oth infec/pa rastc diseases ;Recorde d Elsewher e: No Locat ion: [facility] S ource: EHR Hose Maker andrew: N Practi ce ID: [id number] Devin lable Time: 10:30:00 AM Maribell huggins [facility] 11:52:03 Screenin g for malignan t neoplasm of cervix Completed 09/11/ 2018 11/22/2020 Encounte r for screenin g for malignan t neoplasm of cervix;R ecorded Elsewher e: No Locat ion: [facility] S ource: EHR Hose Maker andrew: N Practi ce ID: 0001 Devin lable Time: 10:30:00 AM Maribell huggins [facility] 11:52:09 Hyperten sive disorder [id number] Completed 201811/22/2020 Hyperten iram;Rec orded Elsewher e: No Locat ion: [facility] S ource: EHR Hose Maker andrew: N Practi ce ID: 0001 Devin lable Time: 01:00:00 PM Maribell huggins [facility] 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 11:52:12 Educatio n Completed 201811/22/2020 Encounte r for oth general cnsl and advice on contrace ption;Pr actice ID: [id number] Maribell huggins [facility] 11:51:58 Insertio n of intraute rine contrace ptive device Completed 201811/22/2020 Encounte r for insertio n of intraute rine contrace ptive device;P ractice ID: [id number] Maribell huggins [facility] 11:52:06 Pregnanc y test negative [id number] Completed 201811/22/2020 Encounte r for pregnanc y test, result negative ;Practic e ID: 0001 Maribell huggins [facility] 11:52:08 Contrace ptive sheath status [id number] Completed 201811/22/2020 Encounte r for routine checking of intraute rine contrace p dev;Prac glenn ID: 0001 Maribell huggins, [facility] 11:51:55 Body mass index 30+ - obesity [id number] Completed 201711/22/2020 Body mass index (BMI) 50-59.9 , adult;Re corded Elsewher e: No Locat ion: [facility] S ource: EHR Hose Maker andrew: N Practi ce ID: 0001 Devin lable Time: 10:30:00 AM Maribell huggins [facility] 11:51:53 Vaginola bial hernia Completed 201711/22/2020 Other specifie d noninfla mmatory disorder s of vagina;R ecorded Elsewher e: No Locat ion: [facility] S ource: EHR Hose Maker andrew: N Practi ce ID: 0001 Devin lable Time: 10:30:00 AM Maribell huggins [facility] 11:52:16 Problem Notes None recorded. Procedures Surgical History Date Name Laterality Status Provider Name and Address Organization Details Recorded Time 021 Endometrial Ablation with Hysteroscopy completed Chapito Peterson MD [address], [place], [address], [facility] 07/07/2021 15:13:53 021 Endometrial Ablation completed Livier Ang [facility] 07/14/2021 11:13:29 021 Hysteroscopy completed Maribell Edmondson [facility] 11/22/2020 11:57:48 019 Date of Last Pap Smear completed Maribell Edmondson [facility] 06/28/2020 11:54:[address] [facility] 07/05/2020 11:12:[address] [facility] 07/05/2020 11:11:[address] [facility] 07/05/2020 11:10:38 Imaging Results None recorded. [...] Prescrib ed Lettyher e: No Locat ion: [facility] M odify By: grecia cai DateTime : [...] Prescrib ed Elsewher e: No Locat ion: [facility] odify By: abdirahman bailey DateTime : 06/17/20 [...] Prescrib ed Elsewher e: No Locat ion: [facility] odify By: sarita carter DateTime : 06/23/20 [...] Prescrib ed Elsewher e: Yes [facility] By: grecia Gipson r DateTime : [...] ed Elsewher e: Yes Loca tion: [facility] odify By: grecia Gipson r DateTime : [...] Prescrib ed Elsewher e: Yes Loca tion: [facility] odify By: grecia cai DateTime : 01/17/20 [...] Last Updated DateTime 168.91 cm 46.9 kg/m2 206091. 75 g 139 mm[Hg] 94 mm[Hg] 140 mm[Hg] 91 mm[Hg] [facility] 1 11:32:21 Date Recorded Body height Body mass index (BMI) Body weight Systolic blood pressure Diastolic blood pressure Systolic blood pressure Diastolic blood pressure Provider Name and Address Organization Details Last Updated DateTime 1 168.91 cm 46.1 kg/m2 910094. 79 g 150 mm[Hg] 109 mm[Hg] 140 mm[Hg] 82 mm[Hg] Amadariley Sharmadarian [facility] 1 09:34:40 Date Recorded Body height Body mass index (BMI) Body weight Systolic blood pressure Diastolic blood pressure Systolic blood pressure Diastolic blood pressure Provider Name and Address Organization Details Last Updated DateTime 1 168.91 cm 46.3 kg/m2 020033. 38 g 154 mm[Hg] 113 mm[Hg] 146 mm[Hg] 92 mm[Hg] [facility] 1 12:11:46 Date Recorded Body height Body mass index (BMI) Body weight Systolic blood pressure Diastolic blood pressure Systolic blood pressure Diastolic blood pressure Provider Name and Address Organization Details Last Updated DateTime 1 168.91 cm 46.6 kg/m2 328265. 56 g 152 mm[Hg] 110 mm[Hg] 145 mm[Hg] 96 mm[Hg] [facility] 1 11:11:52 Date Recorded Body height Body mass index (BMI) Body weight Systolic blood pressure Diastolic blood pressure Systolic blood pressure Diastolic blood pressure Systolic blood pressure Diastolic blood pressure Provider Name and Address Organization Details Last Updated DateTime 2 168.91 cm 47.2 kg/m2 390081. 93 g 145 mm[Hg] 105 mm[Hg] 165 mm[Hg] 115 mm[Hg] 140 mm[Hg] 100 mm[Hg] [facility] 2 11:29:37 Social History Question Answer Notes LastModified by Organizat ion Details LastModified Time Tobacco Smoking Status Never Smoker Maribell huggins, [facility] 07/05/2020 11:09:41 What Is Your Level Of Alcohol Consumption? Occasional [email or web address] Information not available 07/05/2020 Do You Or Have You Ever Used E-cigarettes Or Vape? Never Used Electronic Cigarettes [email or web address] Information not available 07/05/2020 What Was The Date Of Your Most Recent Tobacco Screening? 06/28/2020 [email or web address] Information not available 07/05/2020 Do You Or Have You Ever Used Smokeless Tobacco? Never Used Smokeless Tobacco [email or web address] Information not available 07/05/2020 How Much Tobacco Do You Smoke? No [email or web address] Information not available 07/05/2020 Sex: Unknown Functional Status Question Answer Note LastModified by Organizat ion Details LastModified Time What is your exercise level? Occasional [email or web address] Information not available 07/05/2020 Mental Status None recorded. Family History Relationship Description Onset Age of this Age Resolved Age Notes LastModified by Organization Details LastModified Time Paternal Aunt Diabetes mellitus Not available 07/05 11:09:28 Maternal Aunt Diabetes mellitus [email or web address] Not available 07/05 11:09:28 Notes:\ Medical History [...] SNOMED-CT Code Diagnosis ICD10 Code Diagnosis Note [id number] Chapito Peterson MD [facility] [address] [address] 06/28/2020 10:57:27 06/28/2020 12:40:29 Pain in pelvis 10218645 R10.2 This patient is a 35-year-ol d [...] treatment options. Urinary tr act infectious disease 34572393 N39.0 [id number] Akua Calzada [facility] [address] [address] 07/12/2020 09:15:38 07/12/2020 10:08:04 Pain in pelvis 62265858 R10.2 This patient is a 35-year-ol d [...] after pelvic ultrasound to discuss treatment options. [id number] Chapito Peterson MD [facility] [address] [address] 07/12/2020 09:17:43 07/12/2020 10:36:49 Menorrhagia 395927932 N92.0 Dysmenorrhea 593403949 N 94.6 Pain in pelvis 73956908 R10.2 Malpositio n of intrauterine contraceptive device 0583623833 4690452 T83.32XA Cyst of ovary 78521323 N 83.209 this patient is a 35-year-ol [...] She was given precaution s on torsion. 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 [id number] Chapito Peterson MD [facility] [address] [address] 11/08/2020 11:01:12 11/08/2020 22:50:44 Malposition of intrauterine contraceptive device 0012858381 5733321 T83.32XA Female sterilization [address] atoma of ovary 010605484 D27.9 this patient is a 35-year-ol d [...] consent process and is ready to proceed. [id number] Chapito Peterson MD [facility] [address],[facility] [place] [address] 11/16/2020 10:59:00 11/16/2020 11:09:59 [id number] Chapito Peterson MD [facility] [address],[facility] [place] [address] 11/22/2020 11:20:36 11/22/2020 12:22:06 Postoperative care 474527979 Z48.89 This patient is a 35-year-ol d [...] soon. Incisions are clean dry and intact. [id number] Chapito Peterson MD [facility] [address] [address] 02/13/2021 11:06:34 02/13/2021 12:07:31 Gynecologic examination 93510753 Z01.419 This patient is here for her annual exam. A thorough history was taken. A physical exam was performed. Age appropriat e routine health screening was ordered, performed, and discussed. Recommende d testing was ordered. She was asked to follow up in one year. She will be informed of any test results. Cholestero l - [ done ] Pap - today [id number] Chapito Peterson MD [facility] [address] [address] 06/17/2021 09:19:56 06/17/2021 10:08:45 Menorrhagia 423057737 N92.0 this patient is a 36-year-ol d female with severe menorrhagi a. We have agreed to perform endometria l ablation the office. She understand s the risks, benefits, and alternativ es. We agreed to treat her current bleeding with 200 mg of Prometrium . She will take that every day until the procedure. [id number] Chapito Peterson MD [facility] [address] [address] 07/07/2021 11:47:46 07/07/2021 15:24:51 Screening procedure 02205947 Z13.9 Menorrhagia 554577842 N9 2.0 ablation was completed. She tolerated the procedure well. [id number] Chapito Peterson MD [facility] [address],[place] [address] 07/14/2021 11:03:12 07/14/2021 12:06:24 Menorrhagia 001029230 N92.0 This patient is a 28-year-ol d female presents for follow-up on menorrhagi a. One week ago she had an endometria l ablation. She is recovering normally. She has no complaints . She has watery vaginal discharge that has no odor. She denies any nausea, vomiting, fever, chills. She has normal bowel movements. Will follow-up as needed. [id number] Chapito Peterson MD [facility] [address] [address] 12/18/2021 11:00:04 12/18/2021 14:59:39 Polycystic ovary syndrome 022076597 E28.2 this patient is a 36-year-ol d [...] Name 02/13/2021 1 [place] 1871VMarybeth Joy [id number] 02/13/2021 2 [place] [facility] Kerline Joy [id number] 06/17/2021 1 [place] 1871VMarybeth Joy [id number] 06/17/2021 2 [place] [facility] Kerline Joy [id number] 07/07/2021 1 [place] 1871VMarybeth Joy [id number] 07/07/2021 2 [place] [facility] Kerline Joy [id number] 07/14/2021 1 [place] 1871VMarybeth Joy [id number] 07/14/2021 2 [place] [facility] Kerline Joy [id number] 12/18/2021 1 [place] 1871VMarybeth Joy [id number] 12/18/2021 2 [place] [id number] Notes Date Note Type Note Provider Name [...] exercise Chapito Peterson MD [address], [place], [address], [facility] 02/13/2021 12:06:13 06/17/2021 text/html This patient [...] procedure. Chapito Peterson MD [address], [place], [address], [facility] 06/17/2021 10:04:19 07/07/2021 text/html This patient is a 36-year-old female presents for endometrial ablation. Chapito Peterson MD [address], [place], [address], [facility] 07/07/2021 15:16:33 07/14/2021 text/html This patient is a 28-year-old female presents for follow-up on menorrhagia. One week ago she had an endometrial ablation. She is recovering normally. She has no complaints. She has watery vaginal discharge that has no odor. She denies any nausea, vomiting, fever, chills. She has normal bowel movements. Will follow-up as needed. Chapito Peterson MD [address], [place], [address], [facility] 07/14/2021 11:48:50 12/18/2021 text/html this patient [...] results. Chapito Peterson MD [address], [place], [address], [facility] 12/18/2021 14:57:16 OBGyn Episode Ob Episode Information Episode Created Date Number of Fetuses Patient Bloodtype Patient rh Status Prepregnancy Weight lbs Domestic Partner Domestic Partner Phone Father Name Curb Attendant Status 07/05/20 20 1 CLOSED Fetus Data [...] Domestic Partner Domestic Partner Phone Father Name Curb Attendant Status 07/05/20 20 1 CLOSED Fetus Data [...]
== END 2024-10-05 12:01 | disposition home or self-care (01) ==
LOC: ANHLAB 12:01
PROVIDERS: PCP Emergency Medicine; Visit Provider Emergency Medicine
DX: M06.9 Rheumatoid arthritis, unspecified (principal); I10 Essential (primary) hypertension; R76.0 Raised antibody titer
CPT/HCPCS: 36415; 85025; 86038; 86039; 86430

== ENCOUNTER 2024-10-08 09:49 | Outpatient (CLI) | payer BC, SELFPAY ==
--- NOTE | ~2024-10-08 | US_ITS ---
Limited Abdominal Sonogram: Real-time sonographic imaging of the right upper quadrant was performed. Clinical History: Abnormal findings of blood chemistry Findings: The liver appears normal with no evidence of mass lesion or bile duct dilatation. Main por manish vein demonstrates normal direction of flow. The gallbladder is absent, compatible prior cholecyst ectomy. The common bile duct measures 6 mm. The visualized pancreas, aorta, and IVC are unremarkable . Right kidney unremarkable. Impression: No significant abnormality seen. Status post cholecystectomy. Reviewed, dictated and finalized at location M. Impression: No significant abnormality seen. Status post cholecystectomy.
== END 2024-10-08 09:50 | disposition home or self-care (01) ==
PROVIDERS: PCP Emergency Medicine; Visit Provider Nurse Practitioner Family
DX: K83.8 Other specified diseases of biliary tract (principal); Z90.49 Acquired absence of other specified parts of digestive tract; R79.89 Other specified abnormal findings of blood chemistry
CPT/HCPCS: 76705